=== PATIENT | male | born 1930 | race Caucasian/White ===

== ENCOUNTER 2016-09-03 10:58 | Observation (INO) ==
--- NOTE | 2016-09-03 11:40 | Emergency Department Note ---
GI Bleed HPI - General Chief complaint: Rectal Bleed Stated complaint: Blood in the stool Time Seen by Provider: 09/03/16 11:23 Source: patient Mode of arrival: ambulatory Limitations: no limitations - History of Present Illness HPI Narrative: Patient came in this morning mainly because of a bloody stool. Also tells me for the last couple of weeks he's been having episodes where he gets angry at his . He states this is not like him. 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 He did have a hand injury in the past and needed surgery on his left hand but otherwise has had no major medical conditions and denies taking any medications. He is a little bit hard of hearing, uses hearing aids but then had a bloody stool this morning and that prompted the visit. It turns out he has an irregular heartbeat and is also very hypertensive at.no history of any headache. The he denies chest pain, denies shortness of breath. - Related Data Home Medications Medication Instructions Recorded Confirmed No Known Home Meds [No Known Home 09/03/16 09/03/16 Meds] Allergies Allergy/AdvReac Type Severity Reaction Status Date / Time No Known Drug Allergies Allergy Unverified 09/03/16 11:10 Review of Systems All systems ED: reviewed and negative except as stated. Past Medical History - Past Medical History Source: nursing notes reviewed Surgical history ED: Reports: orthopedic, other Family history: Reports: no significant family history - Social History smoking status: Former smoker Alcohol use: Reports: Rarely Drug use: Reports: none Physical Exam - General Limitations: no limitations General appearance: alert, in no apparent distress - Head Head exam: atraumatic, normocephalic, normal inspection - Eye Eye exam: Present: normal appearance, PERRL, EOMI. Absent: conjunctival injection - ENT ENT exam: normal exam, normal oropharynx, mucous membranes moist, other ( hearing aids bilaterally) - Chest Chest inspection: Present: normal inspection - Respiratory Respiratory exam: Present: normal lung sounds bilaterally - Cardiovascular Cardiovascular exam: Present: irregular rhythm - Abdominal Exam Abdominal exam: Present: soft. Absent: distention - Rectal Exam Rectal exam: Present: normal inspection, normal rectal tone, bloody stool, prostate enlargement, other (Maroon-colored stool). Absent: hemorrhoids - exam: Present: normal inspection. Absent: testicular tenderness - Extremities Exam Extremities exam: Present: normal inspection, full ROM, other (He has tremors of his right hand and forearm). Absent: tenderness - Back Exam Back exam: Present: normal inspection - Neurological Exam Neurological exam: Present: alert, oriented X3, CN II-XII intact. Absent: motor sensory deficit - Psychiatric Psychiatric exam: Present: normal affect - Skin Skin exam: Present: warm, dry, intact Course - Reevaluation(s) Reevaluation #1: Patient was given IV enalapril, also choroid and his blood pressure did come down to 160 range. A. fib is likely chronic but with his rectal bleeding this may need evaluation as he is certainly a candidate for either Coumadin or a NOAC. We cannot give him aspirin at this point because of the rectal bleeding. His hematocrit is stable i.e. normal but his bleeding just started this morning. Vital Signs Temperature 97.0 F 09/03/16 11:01 Pulse Rate 80 09/03/16 11:01 Respiratory Rate 18 09/03/16 11:01 Blood Pressure 205/116 09/03/16 11:01 Pulse Oximetry (%) 96 09/03/16 11:01 Temperature 97.0 F 09/03/16 11:01 Pulse Rate 69 09/03/16 13:32 Respiratory Rate 19 09/03/16 13:32 Blood Pressure 158/91 09/03/16 13:32 Pulse Oximetry (%) 97 09/03/16 13:32 GI Bleed - [facility] Narrative Medical decision making narrative: final diagnoses is #1 new-onset a atrial fibrillation 2)rectal bleeding #3 hypertension untreated - Lab Data Result diagrams: 09/03/16 11:45 09/03/16 11:45 Lab Results 09/03/16 09/03/16 09/03/16 Range/Units 11:45 11:45 11:45 WBC 6.7 (4.5-11.0) K/mcL RBC 4.78 (4.50-5.90) M/mcL Hgb 15.5 (13.5-16.5) g/dL Hct 46.8 (41.0-55.0) % MCV 97.8 (80.0-100.0) fL MCH 32.4 (26.0-34.0) pg MCHC 33.2 (31.0-36.0) g/dL RDW 13.5 (11.5-14.5) % Plt Count 231 (140-440) K/mcL MPV 7.9 (7.4-10.4) fL Gran % 59.4 (38.0-78.0) % Lymph % (Auto) 31.8 (15.5-49.0) % Daniels % (Auto) 5.8 (1.0-12.0) % Eos % (Auto) 2.6 (0.0-7.0) % Baso % (Auto) 0.4 (0.0-2.0) % Gran # 4.0 (1.8-8.0) K/mcL Lymph # (Auto) 2.1 (1.5-4.8) K/mcL Daniels # (Auto) 0.4 (0.1-0.9) K/mcL Eos # (Auto) 0.2 (0.0-0.7) K/mcL Baso # (Auto) 0 (0.0-0.3) K/mcL PT INR Sodium 141 (133-145) mmol/L Potassium 4.3 (3.3-5.1) mmol/L Chloride 100 (96-108) mmol/L Carbon Dioxide 25 (22-30) mmol/L Anion Gap 16.0 (8-16) BUN 14 (8-23) mg/dl Creatinine 0.9 (0.7-1.2) mg/dl GFR Calculation 77 Glucose 104 (70-105) mg/dL Calcium 9.6 (8.6-10.4) mg/dl Total Bilirubin 1.4 H (0.0-1.0) mg/dL AST 23 (0-37) U/l ALT 13 (0-40) U/l Alkaline Phosphatase 88 (39-117) U/L Troponin T < 0.01 (0-0.03) ng/ml NT-Pro-B Natriuret Pep 1430.0 H (0-450) pg/ml Total Protein 7.6 (5.9-8.4) gm/dL Albumin 4.4 (3.2-5.2) gm/dL Globulin 3.2 (2.2-3.7) gm/dL Albumin/Globulin Ratio 1.4 (1.0-2.3) 09/03/16 09/03/16 09/03/16 Range/Units 11:45 11:45 12:41 WBC (4.5-11.0) K/mcL RBC (4.50-5.90) M/mcL Hgb (13.5-16.5) g/dL Hct (41.0-55.0) % MCV (80.0-100.0) fL MCH (26.0-34.0) pg MCHC (31.0-36.0) g/dL RDW (11.5-14.5) % Plt Count (140-440) K/mcL MPV (7.4-10.4) fL Gran % (38.0-78.0) % Lymph % (Auto) (15.5-49.0) % Daniels % (Auto) (1.0-12.0) % Eos % (Auto) (0.0-7.0) % Baso % (Auto) (0.0-2.0) % Gran # (1.8-8.0) K/mcL Lymph # (Auto) (1.5-4.8) K/mcL Daniels # (Auto) (0.1-0.9) K/mcL Eos # (Auto) (0.0-0.7) K/mcL Baso # (Auto) (0.0-0.3) K/mcL PT TNP 13.4 INR TNP 1.0 Sodium (133-145) mmol/L Potassium (3.3-5.1) mmol/L Chloride (96-108) mmol/L Carbon Dioxide (22-30) mmol/L Anion Gap (8-16) BUN (8-23) mg/dl Creatinine (0.7-1.2) mg/dl GFR Calculation Glucose (70-105) mg/dL Calcium (8.6-10.4) mg/dl Total Bilirubin (0.0-1.0) mg/dL AST (0-37) U/l ALT (0-40) U/l Alkaline Phosphatase (39-117) U/L Troponin T (0-0.03) ng/ml NT-Pro-B Natriuret Pep Cancelled (0-450) pg/ml Total Protein (5.9-8.4) gm/dL Albumin (3.2-5.2) gm/dL Globulin (2.2-3.7) gm/dL Albumin/Globulin Ratio (1.0-2.3)
[2016-09-03] MEDS ORDERED: CARVEDILOL 6.25 MG TABLET PO ONE (11:44)
[2016-09-03] MEDS ORDERED: ENALAPRILAT 1.25 MG/ML VIAL IV ONE (11:44)
[2016-09-03] MEDS ORDERED: LACTATED RINGERS 1,000 ML IV SCH (11:45)
[2016-09-03] MEDS ORDERED: CARVEDILOL 12.5 MG TABLET ONE (11:56)
[2016-09-03 12:10] LABS: Basophils # (Auto) 0 K/mcL (0.0-0.3); Basophils % (Auto) 0.4 % (0.0-2.0); Eosinophils # (Auto) 0.2 K/mcL (0.0-0.7); Eosinophils % (Auto) 2.6 % (0.0-7.0); Granulocytes % (Auto) 59.4 % (38.0-78.0); Lymphocytes # (Auto) 2.1 K/mcL (1.5-4.8); Lymphocytes % (Auto) 31.8 % (15.5-49.0); Mean Cell Volume 97.8 fL (80.0-100.0); Mean Corpuscular HGB Conc 33.2 g/dL (31.0-36.0); Mean Corpuscular Hemoglobin 32.4 pg (26.0-34.0); Monocytes # (Auto) 0.4 K/mcL (0.1-0.9); Monocytes % (Auto) 5.8 % (1.0-12.0); Platelet Count 231 K/mcL (140-440); RBC 4.78 M/mcL (4.50-5.90); Red Cell Distribution Width 13.5 % (11.5-14.5)
--- NOTE | 2016-09-03 12:13 | XRay Report ---
CLINICAL INFORMATION: Chest pain COMPARISON: None. FINDINGS: The heart is borderline enlarged. Mediastinum is unremarkable. Pulmonary vessels are slightly distended, but no definite edema. Mild underlying COPD changes noted. No definite infiltrates or effusions. Degenerative changes seen in thoracic spine IMPRESSION: COPD and borderline CHF Interpreted and Authenticated by: Bryson De La Torre 09/03/16
[2016-09-03 12:34] LABS: ALT/SGPT 13 U/l (0-40); Albumin 4.4 gm/dL (3.2-5.2); Albumin/Globulin Ratio 1.4 (1.0-2.3); Alkaline Phosphatase 88 U/L (39-117); Blood Urea Nitrogen 14 mg/dl (8-23)
[2016-09-03 14:13] LABS: Appearance,Urine CLOUDY; Bacteria,Urine 0 /hpf (0); Bilirubin,Urine NEG (NEG); Color,Urine YELLOW; Glucose,Urine (UA) NEGATIVE (NEG); Leukocyte Esterase,Urine NEG /uL (NEG); Mucus,Urine FEW /hpf (0); Nitrate,Urine NEG (NEG); Protein,Urine 30 mg/dL (NEG); Specific Gravity,Urine 1.016 (1.000-1.035); Urine Amorphous Crystals FEW /hpf (0); Urine Blood NEG mg/dL (<0.03); Urine Hyaline Cast 1 /lpf (0-2); Urine RBC 6 /hpf (0-1); Urine Squamous Epithelial Cell 0 /hpf (0-4); Urine WBC 8 /hpf (0-4); Urobilinogen,Urine NEG (NEG)
[2016-09-03] MEDS ORDERED: IOPAMIDOL 100 ML BOTTLE IV ONE (15:16)
--- NOTE | 2016-09-03 15:17 | Internal Med History&Physical ---
Medical - H&P: [facility] Patient information: Note initiated : 09/03/16 at 3:15 pm Patient: Lenny Madden 86 y/o M admitted on for Blood In Stool. History of present illness: Mr. Madden is a 86 year old M He generally avoids doctors, and his says has not seen a primary care doctor in about 20 years. He has intermittent rectal bleeding, which she describes as bright red. He believes he has hemorrhoids, so he has been treating this intermittently with Preparation H. His apparently saw how much blood was in the toilet today, and insisted he come in for evaluation. He does note that he has chronic constipation, and often has to strain. He does take eclj-koz-zptrdwm stool softeners to help with this. Sometimes he has quite a bit of pain after straining to have a bowel movement. He also notes lower abdominal discomfort, which she blames on constipation. Otherwise, he denies dizziness or fainting, or shortness of breath or chest pain. ER evaluation did show stool mixed with blood. The ER physician said he did not see hemorrhoids, but the patient is quite sure that he has 1. He is not anemic. ER evaluation also showed severe hypertension, with blood pressures greater than 200/118. The patient's also reported that he had some personality changes lately, and has been more irritable than usual. The patient says he has had some numbness of his left lower leg for the last couple of weeks, that has not wanted to go away. He otherwise denies any focal weakness or facial droop or slurred speech. EKG did show atrial fibrillation, with a controlled rate. The patient is unaware of any history of this. He denies any recent chest pain or palpitations or shortness of breath. EKG is also abnormal, and suggestive of possible previous ME. The patient does note that he normally walks between 3 and 6 miles a day, but the last few days has not been able to tolerate that much exercise. He does note that his left leg has been a little swollen at times lately. Troponin in the emergency room was negative. Past medical history: Patient reports she is an alcoholic, and was drinking about a pint of scotch per week up until about 1 year ago, when he quit. He does not attend . He believes he has a history of rheumatic heart disease. He describes an ulcer in the distant past which sounds like was treated for H. pylori. He is hard of hearing, and uses bilateral hearing aids. He is status post cataract surgery. He was told his blood pressure was severely elevated then, but did not seek follow-up. 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 He has noticed a tremor of his right hand for the last couple of years, at rest. Next Medications: He does not take any prescription medications. He has been using dmea-rar-orrzyaz Preparation H cream, which it sounds like he just tries to squirt up inside the anal canal. Uses it fairly often. An deyb-xyh-dasdjxr stool softener Multivitamin daily Vitamin D daily Flax oil daily Eye vitamins daily Calcium daily Vitamin C daily He uses Aleve rarely for aches and pains. Allergies: He denies any known drug allergies Family history: He believes both of his parents with tuberculosis. One brother had probable colon cancer with a colostomy, and with a heart attack. One sister of unknown causes. I believe he has another sister who is alive and well. He generally walks between 3 and 6 miles per day. Social history: Patient is and lives with his . He previously drank up to 1 pint of scotch per week, but quit about 1 year ago. He smoked 2- 3 packs of cigarettes per day from the age of 17 until about age 50, when he quit. He does not use drugs. 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 Medical - H&P: Meds Home Medications Medication Instructions Recorded Confirmed Type No Known Home Meds [No Known Home 09/03/16 09/03/16 History Meds] Allergies Allergy/AdvReac Type Severity Reaction Status Date / Time No Known Drug Allergies Allergy Unverified 09/03/16 11:10 Medical - H&P: Exam - Constitutional Vitals: Temp Pulse Resp BP Pulse Ox 97.0 F 63 22 210/120 97 09/03/16 11:01 09/03/16 14:50 09/03/16 14:50 09/03/16 14:50 09/03/16 14:50 On exam, he is a well-developed well-nourished elderly man in no acute distress. He is hard of hearing, but is quite talkative and laughs a lot. Head: Normocephalic, atraumatic. Eyes: Pupils are fairly pinpoint. I could not see his eyegrounds well. He does appear to have IOLs bilaterally. Otherwise, PERRLA, EOMI, anicteric. Ears: Canals have bilateral moderate cerumen. He does have bilateral hearing aids as well. Pharynx: Is clear. He has a full upper plate. Teeth in the lower jaw are in good condition. Neck: Is supple, without obvious lymphadenopathy, JVD, thyromegaly, bruits. Cardiac exam: Irregularly irregular rhythm, with controlled rate. No murmurs, rubs, gallops are noted. Lungs: He does have a few crackles at the bases, but the remainder of the lung browning are clear. No rhonchi or wheezes are noted. There is no accessory muscle use. Abdomen: Is soft, without guarding or rebound. Bowel sounds are active. There is some mild vague tenderness noted in both lower quadrants. No masses are obvious. Rectal exam was done in the emergency room, and reported showing normal tone with bloody stool and enlarged prostate. Extremities: Show no cyanosis, clubbing, edema. He is missing his index finger on the left hand. Neurologic: The patient is alert and oriented 3. Mood and affect appear normal. He did become tearful at one point, when describing how irritable he has been with his recently. Cranial nerves II through XII are grossly intact. Motor strength is 5 out of 5 throughout. Sensory: Is intact to soft touch throughout. Cerebellar: Finger to finger and finger to nose exam are intact. There is no pronator drift noted. He does have a resting tremor of his right hand. Deep tendon reflexes: Are 2+ at the biceps and patella. He withdraws bilaterally to plantar stimulation. Gait is not tested. Medical - H&P: Reslt - Labs CBC & Chem 7: 09/03/16 16:57 09/03/16 11:45 Labs: Short CBC 09/03/16 Range/Units 11:45 WBC 6.7 (4.5-11.0) K/mcL Hgb 15.5 (13.5-16.5) g/dL Hct 46.8 (41.0-55.0) % Plt Count 231 (140-440) K/mcL BMP 09/03/16 11:45 Sodium 141 Potassium 4.3 Chloride 100 Carbon Dioxide 25 BUN 14 Creatinine 0.9 Glucose 104 Calcium 9.6 Cardiac Enzymes 09/03/16 Range/Units 11:45 Troponin T < 0.01 (0-0.03) ng/ml Liver Function 09/03/16 Range/Units 11:45 Total Bilirubin 1.4 H (0.0-1.0) mg/dL AST 23 (0-37) U/l ALT 13 (0-40) U/l Alkaline Phosphatase 88 (39-117) U/L Albumin 4.4 (3.2-5.2) gm/dL Urine 09/03/16 Range/Units 13:17 Urine Color Yellow Urine Appearance Cloudy Urine pH 7.0 (5.0-9.0) Ur Specific Baltic 1.016 (1.000-1.035) Urine Protein 30 A (NEG) mg/dL Urine Glucose (UA) Negative (NEG) mg/dL Urinalysis: Shows 30 mg of protein, 5 ketones, 6 red blood cells, 8 white blood cells, a few amorphous crystals. Culture pending Chest x-ray: Borderline cardiomegaly. Borderline pulmonary vessel dilation. Mild underlying COPD changes. Thoracic spine DJD. CBC differential is normal. Pro time is normal. EKG: Shows atrial fibrillation with a rate of about 70. Occasional PVCs. Left axis deviation. Slow R-wave progression consistent with possible previous ME. No acute appearing ischemic changes. No old EKG to compare. Medical - H&P: A/P (1) Hypertensive urgency Current visit: Yes Status: Acute (2) Atrial fibrillation Current visit: Yes Status: Acute (3) Abnormal EKG Current visit: Yes Status: Acute (4) Rectal bleeding Current visit: Yes Status: Acute - Narrative A/P Narrative: #1. Hypertension. This patient presents with quite severe hypertension. Apparently elevated blood pressure has been documented in the past, but the patient has never sought treatment for this.. His has reported recent personality changes, and I think it would be prudent to check a head CT to rule out recent stroke. Finding evidence of a recent stroke would change our blood pressure target for today. -Admit to observation, and continue to monitor. -Check BNP. Consider echocardiogram, to look for chronic LVH type changes. EKG is also abnormal, so I would wonder about previous ME. 2. Cardiac. -Patient presents with atrial fibrillation, with controlled rate. Chronicity of this is unknown. Chads 2 vascular score is 3 points, which gives him a stroke risk of 3.2% per year. Patient is at increased risk for stroke, and should consider a AC therapy. However we may need to clarify the source of his rectal bleeding first. -Admit to telemetry. -Work on blood pressure control. Consider RIKKI inhibitor with or without diuretic, initially. He may not tolerate a beta-kike. 3. GI. Rectal bleeding. -Check serial hemoglobin and hematocrit, to monitor for stability. We do not have old records to compare. I would be most suspicious of hemorrhoidal bleeding and/or rectal fissure. -Add Anusol suppositories, as needed. 4. CODE STATUS: Patient prefers to be a full code for now, but would not want long-term life support. 5. DVT prophylaxis: SCDs for now. I will hold off on heparin until I see his head CT results. 6. Pulmonary. -Evidence of COPD on his chest x-ray. Any pulmonary symptoms. 7. Neurologic. -Patient's reported increased irritability and personality changes. Head CT. Serial neuro checks. -If head CT is okay, add aspirin for now. So far today, this visit has taken approximately 75 minutes, to review his case with the ER MD, review test results, interview and examine him, and also interview his , and write orders. Head CT and echocardiogram are still pending.
[2016-09-03] MEDS ORDERED: ACETAMINOPHEN 325 MG TABLET PO PRN (16:05)
[2016-09-03] MEDS ORDERED: DOCUSATE SODIUM 100 MG CAPSULE PO PRN (16:05)
[2016-09-03] MEDS ORDERED: MAGNESIUM HYDROXIDE 30 ML ORAL.SUSP PO PRN (16:05)
[2016-09-03] MEDS ORDERED: ONDANSETRON 4 MG/2 ML VIAL IV PRN (16:05)
[2016-09-03] MEDS: LACTATED RINGERS 1,000 ML IV SCH (17:11)
[2016-09-03] MEDS ORDERED: KETAMINE 10 MG/ML ML IV PRN (17:39)
[2016-09-03] MEDS ORDERED: MIDAZOLAM 2 MG/2 ML VIAL IV SCH (17:45)
[2016-09-03] MEDS ORDERED: PROPOFOL 200 MG/20 ML VIAL IV SCH (17:45)
[2016-09-03] MEDS ORDERED: METOPROLOL TARTRATE 25 MG TABLET PO PRN (17:50)
[2016-09-03] MEDS ORDERED: HYDROCORTISONE ACETATE 25 MG SUPP.RECT PR PRN (17:51)
[2016-09-03] MEDS ORDERED: FUROSEMIDE 20 MG/2 ML VIAL IV ONE ×2 (19:35→19:51)
[2016-09-03] MEDS: HEPARIN 5,000 UNIT/ML VIAL SQ SCH (21:28)
[2016-09-04 05:31] LABS: Basophils # (Auto) 0 K/mcL (0.0-0.3); Basophils % (Auto) 0.5 % (0.0-2.0); Eosinophils # (Auto) 0.2 K/mcL (0.0-0.7); Eosinophils % (Auto) 3.3 % (0.0-7.0); Granulocytes % (Auto) 53.7 % (38.0-78.0); Lymphocytes # (Auto) 2.4 K/mcL (1.5-4.8); Lymphocytes % (Auto) 34.7 % (15.5-49.0); Mean Cell Volume 97.9 fL (80.0-100.0); Mean Corpuscular HGB Conc 33.1 g/dL (31.0-36.0); Mean Corpuscular Hemoglobin 32.4 pg (26.0-34.0); Monocytes # (Auto) 0.5 K/mcL (0.1-0.9); Monocytes % (Auto) 7.8 % (1.0-12.0); Platelet Count 213 K/mcL (140-440); RBC 4.69 M/mcL (4.50-5.90); Red Cell Distribution Width 13.5 % (11.5-14.5)
[2016-09-04 06:45] LABS: ALT/SGPT 11 U/l (0-40); Albumin 3.9 gm/dL (3.2-5.2); Albumin/Globulin Ratio 1.3 (1.0-2.3); Alkaline Phosphatase 77 U/L (39-117); Bilirubin,Direct < 0.2 mg/dL (0.0-0.3); Blood Urea Nitrogen 13 mg/dl (8-23); Gamma Glutamyl Transpeptidase 32 U/L (8-61); Magnesium 1.9 mg/dL (1.6-2.5); Uric Acid 5.7 mg/dL (2.5-8.0)
[2016-09-04] MEDS ORDERED: LISINOPRIL/HCTZ 10/12.5MG TABLET PO SCH (09:00)
[2016-09-04] MEDS ORDERED: LISINOPRIL 10 MG TABLET PO SCH (09:00)
[2016-09-04] MEDS ORDERED: HYDROCHLOROTHIAZIDE 12.5 MG CAPSULE PO SCH (09:00)
--- NOTE | 2016-09-04 09:18 | Cat Scan Report ---
CLINICAL INFORMATION: Hypertension and personality change: Atrial fibrillation COMPARISON: None. TECHNIQUE: 80 cc of Isovue-300 were injected intravenously , and using SmartPrep to maximize cerebral arterial opacification, 0.625 mm helical slices were obtained from the skull base through the cerebral vertex. Following reconstruction , sagittal, coronal and axial reformatted images were processed and reviewed at multiple windows and levels. 3D volume rendered and MIP images were also obtained at an independent workstation. FINDINGS: The intracranial internal carotid, vertebral basilar, anterior, middle and posterior cerebral arteries and their branches are normal in contour and caliber without abnormality. The superficial and deep cerebral veins and venous sinuses are widely patent. The parenchyma shows mild underlying atrophy and chronic ischemic changes in the cerebral white matter. No evidence of hypertensive hemorrhage or focal infarct IMPRESSION: Normal Interpreted and Authenticated by: Bryson De La Torre 09/04/16
[2016-09-04] MEDS ORDERED: WARFARIN 5 MG TABLET PO SCH (14:00)
--- NOTE | 2016-09-04 14:38 | Discharge Summary ---
Medical - DS: Prov Patient information: Note initiated : 09/04/16 at 2:35 pm Patient: Lenny Madden 86 y/o M admitted on 09/03/16 for Blood In Stool/ Hypertensive Urgency, AFib. Date of admission: 09/03/16 15:15 Discharge date: 09/04/16 Admitting clinician: Allison Kwan Attending physician on discharge: Allison Kwan Medical - DS: Meds - Discharge Medications Prescriptions: Warfarin [Coumadin] 5 mg PO QHS #30 tablet Hydrocortisone Acetate [Anusol Hc] 25 mg DE BIDP PRN #14 PRN Reason: Hemorrhoids Lisinopril/Hctz 10/12.5MG [Zestoretic 10/12.5MG] 1 tab PO DAILY #30 tab Active and Home Medications: Home Medications Fish Oil 1,000 mg PO DAILY 09/03/16 [History Confirmed 09/03/16 Last Taken 09/03 09:00] Multivitamin [One Daily Essential] 1 each PO DAILY 09/03/16 [History Confirmed 09/03/16 Last Taken 09/03/16 09:00] Vit A,C & E/Lutein/Minerals [Ocuvite] 1 tab PO DAILY 09/03/16 [History Confirmed 09/03/16 Last Taken 09/03/16 09:00] Vitamin D3 [Vitamin D3] 1 cap PO DAILY 09/03/16 [History Confirmed 09/03/16 Last Taken 09/03/16 09:00] Medical - DS: Hosp Hospital course: Mr. Madden is a 86 year old M September 03, 2016: History of present illness: Mr. Madden is a 86 year old M He generally avoids doctors, and his says has not seen a primary care doctor in about 20 years. He has intermittent rectal bleeding, which she describes as bright red. He believes he has hemorrhoids, so he has been treating this intermittently with Preparation H. His apparently saw how much blood was in the toilet today, and insisted he come in for evaluation. He does note that he has chronic constipation, and often has to strain. He does take [id number] stool softeners to help with this. Sometimes he has quite a bit of pain after straining to have a bowel movement. He also notes lower abdominal discomfort, which she blames on constipation. Otherwise, he denies dizziness or fainting, or shortness of breath or chest pain. ER evaluation did show stool mixed with blood. The ER physician said he did not see hemorrhoids, but the patient is quite sure that he has 1. He is not anemic. ER evaluation also showed severe hypertension, with blood pressures greater than 200/118. The patient's also reported that he had some personality changes lately, and has been more irritable than usual. The patient says he has had some numbness of his left lower leg for the last couple of weeks, that has not wanted to go away. He otherwise denies any focal weakness or facial droop or slurred speech. EKG did show atrial fibrillation, with a controlled rate. The patient is unaware of any history of this. He denies any recent chest pain or palpitations or shortness of breath. EKG is also abnormal, and suggestive of possible previous NH. The patient does note that he normally walks between 3 and 6 miles a day, but the last few days has not been able to tolerate that much exercise. He does note that his left leg has been a little swollen at times lately. Troponin in the emergency room was negative. Past medical history: Patient reports she is an alcoholic, and was drinking about a pint of scotch per week up until about 1 year ago, when he quit. He does not attend AA. He believes he has a history of rheumatic heart disease. He describes an ulcer in the distant past which sounds like was treated for H. pylori. He is hard of hearing, and uses bilateral hearing aids. He is status post cataract surgery. He was told his blood pressure was severely elevated then, but did not seek follow-up. 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 He has noticed a tremor of his right hand for the last couple of years, at rest. September 04, 2016: Hospital course: -The patient diuresed over 1500 mL overnight, and states he feels so much better this morning. He notes his leg swelling is definitely gone. 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 -Blood pressures are much better controlled this morning. -He has had no further rectal bleeding. Hemoglobin and hematocrit are stable this morning. -CT angiogram of the brain did not show any obvious strokes or arterial occlusions. Echocardiogram was done, and I do not have a formal report, but Dr. Sylvester called last night to say that ejection fraction was around 50%, and there was mild LVH, but otherwise not much in the way of significant findings. On exam, he is a well-developed man lying in bed. He is in good spirits today. Neck is supple without obvious JVD. Cardiac exam shows an irregularly irregular rhythm with controlled rate. Lungs show a few crackles at the bases, otherwise clear. Abdomen is soft and nontender. Extremities: Show no significant edema. Neurologic exam: Is grossly nonfocal. Assessment and plan: #1. Hypertension. This patient presented with hypertensive urgency. He received Coreg and Enalapril in the emergency room, and blood pressure settle down nicely. I believe he did receive 1 dose of IV Lopressor last night as well. He has been a bit bradycardic this morning, but blood pressures are generally fairly well controlled, ranging from 149-154/79-86. Due to his stroke risk, I have chosen to start him on lisinopril plus HCTZ. -He will need to follow-up with a new primary care physician as soon as possible , to recheck his labs and his blood pressure. I believe we have arranged for him to meet with Dr. Bryson Dawson this evening, to establish care. -The formal echocardiogram report should be obtained. 2. Cardiac. -Patient presents with atrial fibrillation, with controlled rate. Chronicity of this is unknown. Chads 2 vascular score is 3 points, which gives him a stroke risk of 3.2% per year. Patient is at increased risk for stroke, and should consider a AC therapy. -I have elected to start him on anticoagulation. We check the cost for Eliquis and Xarelto, but even with his insurance, these would cost him over $300 a month. He has decided to go with Coumadin. He will receive 10 mg of Coumadin this afternoon. He will be sent home with a prescription for 5 mg, to take one each evening. I believe Dr. Dawson will be able to have his INR checked on Friday, to adjust his dose if needed, but alternatively, he could come to the [facility], and that result can be called to the hospitalist, and we can manage it over the weekend. -He will need lots of education about warfarin and medical care in general, since he has avoided doctors for the last 20+ years. -Rate is well controlled. It appears he would not tolerate a beta-kike, as he was quite bradycardic on telemetry earlier today. 3. GI. Rectal bleeding. -He has not had any further rectal bleeding today. We believe the source is hemorrhoidal, but he should probably have GI follow-up to investigate further, at some point. Hemoglobin and hematocrit were stable overnight. -Anusol suppositories, twice daily as needed, were prescribed. 4. CODE STATUS: Patient prefers to be a full code for now, but would not want long-term life support. 5. DVT prophylaxis: Coumadin is being started today. 6. Pulmonary. -Evidence of COPD on his chest x-ray. He denies any pulmonary symptoms. 7. Neurologic. -Patient's reported increased irritability and personality changes. Head CT-angiogram was negative.. Coumadin is being started, due to increased stroke risk. -The patient and his are educated about Coumadin today, and he is strongly encouraged to avoid activities that might induce trauma, such as climbing up ladders and cutting down trees, which apparently are things he would generally do. He is advised that he can continue to walk 3-6 miles a day, as is his habit , but should avoid trauma. Disposition: Patient will be discharged home today to the care of his . I believe we have arranged for him to meet Dr. Bryson Dawson this afternoon, to establish care, so that he can help monitor his new blood pressure and Coumadin medications. This visit is taken approximately 40 minutes so far today, to meet with the patient and his , at least twice, to review test results, to examine him and the plan of care with staff, and then write orders. Discharge diagnosis: New onset atrial fibrillation. Hypertensive urgency. Volume overload. Re Secondary discharge diagnosis: Rectal bleeding. - Time Spent with Patient Total time spent providing and/or coordinating discharge services: Greater than 30 minutes Medical - DS: Exam - Constitutional Vitals: Vital Signs Temp Pulse Resp BP Pulse Ox 09/04/16 08:00 98.0 F 18 154/86 97 09/04/16 07:02 94 09/04/16 04:00 98.5 F 69 18 151/86 94 09/04/16 00:00 98.4 F 68 18 149/79 92 09/03/16 20:00 98.9 F 68 20 194/90 94 09/03/16 16:30 207/121 09/03/16 15:40 98.2 F 58 L 18 198/97 96 Intake and Output 09/04/16 09/04/16 09/04/16 05:59 13:59 21:59 Intake Total 360 / 360 Output Total 1575 / 1575 Balance -1575 / -1575 360 / 360 Intake: Oral 360 / 360 Output: Void Amount 1575 / 1575 Other: Meal Breakfast Percent of Meal Consumed 100% Medical - DS: Data Labs on day of discharge: Labs from last 24 hours 09/04/16 09/04/16 09/04/16 03:38 03:38 03:38 WBC 7.0 RBC 4.69 Hgb 15.2 TNP Hct 45.9 TNP MCV 97.9 MCH 32.4 MCHC 33.1 RDW 13.5 Plt Count 213 MPV 7.8 Gran % 53.7 Lymph % (Auto) 34.7 [place] % (Auto) 7.8 Eos % (Auto) 3.3 Baso % (Auto) 0.5 Gran # 3.8 Lymph # (Auto) 2.4 [place] # (Auto) 0.5 Eos # (Auto) 0.2 Baso # (Auto) 0 Sodium 142 Potassium 4.2 Chloride 100 Carbon Dioxide 27 Anion Gap 15.0 BUN 13 Creatinine 0.8 GFR Calculation 81 Glucose 74 Uric Acid 5.7 Calcium 9.2 Phosphorus 3.1 Magnesium 1.9 Total Bilirubin 1.6 H Direct Bilirubin < 0.2 GGT 32 AST 20 ALT 11 Alkaline Phosphatase 77 Lactate Dehydrogenase 220 NT-Pro-B Natriuret Pep Total Protein 6.8 Albumin 3.9 Globulin 2.9 Albumin/Globulin Ratio 1.3 Triglycerides 77 09/03/16 09/03/16 09/03/16 21:55 16:57 16:57 WBC RBC Hgb 15.2 15.5 Hct 46.2 46.4 MCV MCH MCHC RDW Plt Count MPV Gran % Lymph % (Auto) [place] % (Auto) Eos % (Auto) Baso % (Auto) Gran # Lymph # (Auto) [place] # (Auto) Eos # (Auto) Baso # (Auto) Sodium Potassium Chloride Carbon Dioxide Anion Gap BUN Creatinine GFR Calculation Glucose Uric Acid Calcium Phosphorus Magnesium Total Bilirubin Direct Bilirubin GGT AST ALT Alkaline Phosphatase Lactate Dehydrogenase NT-Pro-B Natriuret Pep 1451.0 H Total Protein Albumin Globulin Albumin/Globulin Ratio Triglycerides September 04: Intake and output shows he diuresed about 1500 mL overnight. Urine culture shows no growth to date. CT angiogram of the head: As interpreted as normal. Intracranial internal carotid, vertebrobasilar, anterior middle and posterior cerebral arteries and their branches are normal. Parenchyma shows mild underlying atrophy and chronic ischemic changes. Echocardiogram: Formal report is pending. September 03: Urinalysis: Shows 30 mg of protein, 5 ketones, 6 red blood cells, 8 white blood cells, a few amorphous crystals. Culture pending Chest x-ray: Borderline cardiomegaly. Borderline pulmonary vessel dilation. Mild underlying COPD changes. Thoracic spine DJD. CBC differential is normal. Pro time is normal. Troponin was normal. BNP was elevated. EKG: Shows atrial fibrillation with a rate of about 70. Occasional PVCs. Left axis deviation. Slow R-wave progression consistent with possible previous NH. No acute appearing ischemic changes. No old EKG to compare. Medical - DS: A/P - Patient/Caregiver Discharge Instructions Activity: increase activity as tolerated Diet: Cardiac Additional Instructions: 1. Cardiac arrhythmia: No fibrillation. -This rhythm increases her risk for stroke. Because of this, we are starting you on a blood thinner, warfarin. He will be given 1 dose of this today, prior to leaving. He should then plan on taking 1 dose each evening, until the dose is adjusted by your new physician , Dr. Dawson. He will meet with Dr. Dawson this evening, at 5 PM, to establish care. Please do not miss this appointment. Please avoid activities which may lead to trauma or falls. Please avoid ladders. Please avoid cutting down trees or doing other things were you might end up falling or having something fall on you. Continue to exercise daily, as tolerated. Walking is a great exercise. Call your doctor right away if you see signs of excessive bleeding. #2. Rectal bleeding. Suspect this is due to hemorrhoids. I did prescribe a medication, a rectal suppository, to use as needed, when this flares up. Dr. Dawson may want to refer you to a milieu technician, to consider a colonoscopy, to be sure the bleeding is only from hemorrhoids. #3. Hypertension. Blood pressure was extremely high yesterday. He also showed signs of holding onto too much fluid. You were started today on a new blood pressure medication, that also includes a fluid pill. These take this every morning. Please have Dr. Dawson check lab tests/kidney function, and the next 1-2 weeks. Prescriptions: Warfarin [Coumadin] 5 mg PO QHS #30 tablet Hydrocortisone Acetate [Anusol Hc] 25 mg DE BIDP PRN #14 PRN Reason: Hemorrhoids Lisinopril/Hctz 10/12.5MG [Zestoretic 10/12.5MG] 1 tab PO DAILY #30 tab - Problem Maintenance (1) Hypertensive urgency Status: Acute (2) Atrial fibrillation Status: Acute (3) Abnormal EKG Status: Acute (4) Rectal bleeding Status: Acute - Follow up Plan Follow up with: Bryson Dawson DO [Physician] - 09/04/16 5:00 pm Disposition: Home, Self-Care Prognosis: Good Rehab Potential: Good Overall status at discharge: patient is back to baseline Medical - DS: Qual - VTE Deep Vein Thrombosis/Pulmonary Embolism Present on Admission: No
[2016-09-04] MEDS: HEPARIN 5,000 UNIT/ML VIAL SQ SCH (15:39)
[2016-09-04] MEDS: LACTATED RINGERS 1,000 ML IV SCH (15:40)
== END 2016-09-04 17:00 | disposition home or self-care (01) ==
LOC: ICU 10:58 → ED 10:58 → ICU 15:31
PROVIDERS: ADMIT Internal Medicine; ATTEND Internal Medicine

== ENCOUNTER 2016-09-26 13:18 | Inpatient (IN) ==
[~2016-09-26 13:18] MED LIST: KETAMINE 10 MG/ML ML IV PRN; MIDAZOLAM 2 MG/2 ML VIAL IV SCH; PROPOFOL 200 MG/20 ML VIAL IV SCH
[2016-09-26] MEDS ORDERED: HYDROmorphone 2 MG/ML SYRINGE IV PRN (15:27)
[2016-09-26] MEDS ORDERED: ONDANSETRON 4 MG/2 ML VIAL IV PRN (15:27)
[2016-09-26] MEDS: 0.9 % SODIUM CHLORIDE 1,000 ML IV SCH (16:14)
[2016-09-26 17:06] LABS: Appearance,Urine CLEAR; Bilirubin,Urine NEG (NEG); Color,Urine STRAW; Glucose,Urine (UA) NEGATIVE (NEG); Leukocyte Esterase,Urine NEG /uL (NEG); Nitrate,Urine NEG (NEG); Protein,Urine NEG (NEG); Specific Gravity,Urine 1.004 (1.000-1.035); Urine Blood NEG mg/dL (<0.03); Urobilinogen,Urine NEG (NEG)
[2016-09-26 17:11] LABS: Mean Corpuscular HGB Conc 33.4 g/dL (31.0-36.0); Mean Corpuscular Hemoglobin 32.4 pg (26.0-34.0); Platelet Count 258 K/mcL (140-440); RBC 4.67 M/mcL (4.50-5.90); Red Cell Distribution Width 12.9 % (11.5-14.5)
[2016-09-26 17:33] LABS: ALT/SGPT 14 U/l (0-40); Albumin 4.1 gm/dL (3.2-5.2); Albumin/Globulin Ratio 1.3 (1.0-2.3); Alkaline Phosphatase 78 U/L (39-117); Bilirubin,Direct < 0.2 mg/dL (0.0-0.3); Blood Urea Nitrogen 19 mg/dl (8-23); C-Reactive Protein < 0.3 mg/dl (0.0-0.8); Gamma Glutamyl Transpeptidase 22 U/L (8-61); Magnesium 2.3 mg/dL (1.6-2.5); Uric Acid 7.1 mg/dL (2.5-8.0)
--- NOTE | 2016-09-26 17:35 | General Surg History&Physical ---
History of Present Illness Patient information: Note initiated : 09/26/16 at 5:33 pm Service Date, if different from initiated Date: [] Patient: Lenny Madden a 86 y/o M admitted on 09/26/16 for Colonoscopy. Chief Complaint: [Rectal bleeding] HPI: Mr. Madden is a 86 year old M with history of intermittent rectal bleeding for a few months. He had an episode of paroxysmal atrial fibrillation and was started on Coumadin. His INR progressed about 4 and he had more rectal bleeding. He was referred for colonoscopy. At colonoscopy he was noted to have a large exophytic neoplasm of his sigmoid colon at about 15-20 cm. He has active bleeding at the time and is admitted for colectomy in the morning. Review of Systems - Constitutional no frequent falls, no headache(s), no malaise, no weakness, no weight loss - EENT Nose, mouth and throat: no abnormal hearing (Bilateral hearing aids), no dizziness, no headache(s), no vertigo - Cardiovascular irregular heart rhythm, palpatations, rapid heart rate, no chest pain at rest, no claudication, no dyspnea on exertion, no syncope - Respiratory no cough, no dyspnea on exertion, no wheezing, no chest congestion - Gastrointestinal hematochezia, no abdominal pain, no bloating, no change in bowel habits, no change in stool character, no constipation, no fecal incontinence, no melena, no nausea, no vomiting - Genitourinary change in urinary stream, urinary frequency, urinary urgency, no dysuria - Musculoskeletal abnormal gait, arthralgias, joint swelling, muscle weakness, numbness, stiffness - Integumentary no change in nails, no changing lesions, no new lesions, no pruritus, no rash - Neurological abnormal hearing, no abnormal movements, no abnormal speech, no confusion, no dizziness, no numbness, no syncope, no tremor(s) - Psychiatric no anxiety, no confusion, no depression, no paranoia - Endocrine no cold intolerance, no fatigue, no palpitations - Hematologic/Lymphatic no easy bleeding, no easy bruising, no lymphadenopathy - Allergic/Immunologic no tongue swelling, no throat swelling, no uticaria, no wheezing, no lip swelling Past History Past medical history: Hypertension Chronic atrial fibrillation Hypertensive cardiomyopathy with ejection fraction of 50% Past surgical history: Amputation left second finger Past family history: Not applicable Past social history: Former smoker Occasional alcohol use Medications and Allergies Home Medications Medication Instructions Recorded Confirmed Type Fish Oil 1,000 mg PO DAILY 09/03/16 09/26/16 History Multivitamin [One Daily Essential] 1 each PO DAILY 09/03/16 09/26/16 History Vit A,C & E/Lutein/Minerals 1 tab PO DAILY 09/03/16 09/26/16 History [Ocuvite] Vitamin D3 1 cap PO DAILY 09/03/16 09/26/16 History Acetaminophen [Tylenol] 650 mg PO Q6HP PRN tab 09/04/16 09/26/16 Rx furosemide 20 mg tablet 20 mg PO QDAY #30 tab 09/04/16 09/26/16 Rx lisinopril 10 1 tab PO DAILY #30 tab 09/04/16 09/26/16 Rx mg-hydrochlorothiazide 12.5 mg tablet potassium chloride ER 10 mEq 10 meq PO QDAY #30 tab 09/04/16 09/26/16 Rx tablet,extended release warfarin 1 mg tablet 1 mg PO .COMPLEX #30 tab 09/20/16 09/26/16 Rx warfarin 5 mg tablet 5 mg PO .COMPLEX #30 tab 09/20/16 09/26/16 Rx Allergies Allergy/AdvReac Type Severity Reaction Status Date / Time No Known Drug Allergies Allergy Verified 09/18/16 16:25 Exam Temp Pulse Resp BP Pulse Ox 97.7 F 64 20 156/79 94 09/26/16 16:00 09/26/16 15:45 09/26/16 16:00 09/26/16 16:00 09/26/16 16:00 - General physical appearance well developed, well nourished, no distress - Eyes PERRL, normal ocular movement - ENT normal pinna, normal nares, normal mucosa, no hearing loss, no congestion, decreased hearing (Bilateral hearing aids) - Head Head exam IM: Present: atraumatic, normocephalic - Neck no masses, no bruits, trachea midline, no lymphadectomy, no venous distension - Cardiovascular Cardiovascular exam IM: Present: irregular rhythm, +S1, +S2 - Respiratory normal expansion, normal respiratory effort, clear to percussion, clear to auscultation - Abdomen Abdomen: Present: soft, non tender, bowel sounds Hernia: Present: none - Genitourinary Present: normal penis with no external lesions - Rectum Rectum: Present: normal sphincter tone, no hemorrhoids, no tenderness - Integumentary Present: no rash, no growths, no abnormal pigmentation - Neurologic Present: normal coordination, normal sensation - Musculoskeletal Present: normal gait, normal posture - Psychiatric Present: oriented to time, oriented to person, oriented to place, speech is normal, memory intact Assessment and Plan (1) Malignant neoplasm of sigmoid colon Patient counseled for sigmoid colectomy to be done tomorrow morning Status: Acute (2) Essential hypertension Hold antihypertensives until after surgery Status: Acute (3) Anticoagulated on Coumadin INR will be corrected with fresh frozen plasma if needed Patient will be typed and crossed for 2 units of packed red cells Status: Acute (4) Atrial fibrillation Status: Acute Qualifiers: Atrial fibrillation type: chronic Qualified Code(s): I48.2 - Chronic atrial fibrillation (5) Rectal bleeding Status: Acute
[2016-09-26 17:43] LABS: Eosinophils % (Manual) 2 % (0-7); Lymphocytes % 38 % (15-49); Monocytes % (Manual) 6 % (1-12); Platelet Estimate NORMAL (NORMAL); RBC Morphology NORMAL (NORMAL); Segmented Neutrophils % 54 % (38-78)
--- NOTE | 2016-09-26 18:19 | XRay Report ---
CLINICAL INFORMATION: Preoperative evaluation TECHNIQUE: AP portable chest x-ray COMPARISON: Previous examination dated 09/03/2016 FINDINGS: No acute or focal pulmonary parenchymal infiltrate. No parenchymal mass. There are scattered small nodules consistent with calcified granulomas. Heart size and vascularity are normal. Berna and mediastinum are negative. No pulmonary congestion or congestive heart failure. No pleural fluid. No acute abnormality or interval change IMPRESSION: Negative AP portable chest x-ray Interpreted and Authenticated by: Bryson Fry 09/26/16
[2016-09-26] MEDS ORDERED: metroNIDAZOLE 500 MG/100 ML BAG IV SCH (19:00)
[2016-09-26] MEDS: 0.9 % SODIUM CHLORIDE 250 ML IV SCH (23:15)
[2016-09-26] MEDS: 0.9 % SODIUM CHLORIDE 10 ML SYRINGE IV SCH (23:15)
[2016-09-26] MEDS: FAMOTIDINE/PF 20 MG/2 ML VIAL IV SCH (23:16)
[2016-09-27] MEDS ORDERED: PIPERACILLIN SODIUM/TAZOBACTAM 3.375 GM VIAL IV ONE (04:55)
[2016-09-27] MEDS: 0.9 % SODIUM CHLORIDE 1,000 ML IV SCH ×3 (05:23→14:18)
[2016-09-27] MEDS: 0.9 % SODIUM CHLORIDE 10 ML SYRINGE IV SCH (05:47)
[2016-09-27] MEDS: PIPERACILLIN SODIUM/TAZOBACTAM 3.375 GM in DEXTROSE 5% IN WATER 50 ML IV SCH ×3 (05:48→17:57)
[2016-09-27] MEDS: metroNIDAZOLE 500 MG/100 ML BAG IV SCH ×3 (06:00→19:44)
[2016-09-27] MEDS: FAMOTIDINE/PF 20 MG/2 ML VIAL IV SCH ×2 (08:29→20:40)
[2016-09-27] MEDS ORDERED: PROPOFOL 200 MG/20 ML VIAL IV ONE (09:45)
[2016-09-27] MEDS ORDERED: fentaNYL 250 MCG/5 ML VIAL IV ONE (09:45)
[2016-09-27] MEDS ORDERED: LIDOCAINE HCL/PF 100 MG/5 ML SYRINGE IV ONE (09:45)
[2016-09-27] MEDS ORDERED: GLYCOPYRROLATE 0.2 MG/ML VIAL IV ONE (09:45)
[2016-09-27] MEDS ORDERED: KETAMINE 100 MG/ML ML IV ONE (09:45)
[2016-09-27] MEDS ORDERED: DEXAMETHASONE 10 MG/ML VIAL IV ONE (09:45)
[2016-09-27] MEDS ORDERED: HYDROmorphone 2 MG/ML SYRINGE IV ONE (09:45)
[2016-09-27] MEDS ORDERED: MIDAZOLAM 2 MG/2 ML VIAL IV ONE (09:45)
[2016-09-27] MEDS ORDERED: NEOSTIGMINE 1 MG/ML VIAL IV ONE (09:45)
[2016-09-27] MEDS ORDERED: ROCURONIUM 10 MG/ML ML IV ONE (09:45)
[2016-09-27] MEDS ORDERED: ONDANSETRON 4 MG/2 ML VIAL IV ONE (09:45)
[2016-09-27] MEDS ORDERED: ETOMIDATE 20 MG/10 ML VIAL IV ONE (09:45)
[2016-09-27] MEDS: 0.9 % SODIUM CHLORIDE 250 ML IV SCH (10:18)
[2016-09-27] MEDS ORDERED: PIPERACILLIN SODIUM/TAZOBACTAM 3.375 GM in DEXTROSE 5% IN WATER 50 ML IV ONE (11:38)
[2016-09-27] MEDS ORDERED: metroNIDAZOLE 500 MG/100 ML BAG IV ONE (11:39)
[2016-09-27] MEDS ORDERED: HYDROmorphone 2 MG/ML SYRINGE IV PRN (11:49)
[2016-09-27] MEDS ORDERED: LACTATED RINGERS 250 ML IV PRN (11:49)
[2016-09-27] MEDS ORDERED: fentaNYL 100 MCG/2 ML VIAL IV PRN (11:49)
[2016-09-27] MEDS ORDERED: FLUMAZENIL 0.1 MG/ML ML IV PRN (11:49)
[2016-09-27] MEDS ORDERED: BENZOCAINE/MENTHOL 1 LOZENGE PO PRN (11:49)
[2016-09-27] MEDS ORDERED: IPRATROPIUM/ALBUTEROL 3 ML AMPUL.NEB NEB PRN (11:49)
[2016-09-27] MEDS ORDERED: ePHEDrine 50 MG/ML AMPUL IV PRN (11:49)
[2016-09-27] MEDS ORDERED: METHOCARBAMOL 1,000 MG/10 ML VIAL IV PRN (11:49)
[2016-09-27] MEDS ORDERED: NALOXONE HCL 0.4 MG/ML VIAL IV PRN (11:49)
[2016-09-27] MEDS ORDERED: MEPERIDINE 50 MG/ML SYRINGE IM PRN (11:49)
[2016-09-27] MEDS ORDERED: diphenhydrAMINE 50 MG/ML VIAL IV PRN (11:49)
[2016-09-27] MEDS ORDERED: MEPERIDINE 25 MG/ML SYRINGE IV PRN (11:49)
[2016-09-27] MEDS ORDERED: ONDANSETRON 4 MG/2 ML VIAL IV PRN ×2 (11:49→12:45)
[2016-09-27] MEDS ORDERED: LACTATED RINGERS 1,000 ML IV SCH (12:00)
[2016-09-27] MEDS ORDERED: ACETAMINOPHEN 1,000 MG/100 ML BOTTLE IV SCH (12:00)
--- NOTE | 2016-09-27 12:29 | Brief Operative Note ---
Date of procedure: 09/27/16 Pre-op diagnosis: hemorrhagic neoplasm sigmoid colon Post-op diagnosis: other (neoplasm of sigmoid colon) Procedure: segmental left colectomy Grafts/Implants: No Anesthesia: GETA Findings: hard mass of distal sigmoid colon above peritoneal reflection with extension through the wall clinically Complications: none Surgeon: Erick Cortes Estimated blood loss (cc): 50 Specimens Removed/Pathology: other (sigmoid colon) Condition: stable Disposition: PACU
--- NOTE | 2016-09-27 13:07 | Surgical Pathology Report ---
HISTOLOGY SPECIMEN MICROSCOPIC DIAGNOSIS SPECIMEN A - COLON, ASCENDING, POLYPECTOMY: -- TUBULAR ADENOMA(S), TWO FRAGMENTS. -- NO EVIDENCE OF HIGH-GRADE DYSPLASIA OR MALIGNANCY. SPECIMEN B - COLON, DESCENDING, POLYPECTOMY: -- TUBULAR ADENOMA. -- NO EVIDENCE OF HIGH-GRADE DYSPLASIA OR MALIGNANCY. SPECIMEN C - COLON, SIGMOID, BIOPSY: -- INVASIVE MODERATELY-DIFFERENTIATED ADENOCARCINOMA. (SE:manjit) CLINICAL HISTORY Hematochezia. PROCEDURAL IMPRESSION Sigmoid colon cancer; polyps. GROSS DESCRIPTION Specimen A: Received in formalin labeled ascending colon polyp, are two perez to red-perez tissue fragments 0.4 cm each. Totally submitted - one cassette. Specimen B: Received in formalin labeled descending colon polyp, is a 0.6 cm perez tissue fragment. Totally submitted - one cassette. Specimen C: Received in formalin labeled sigmoid colon, are five red-perez tissue fragments 0.2 to 0.4 cm. Totally submitted - one cassette. (RAD:sln) Electronically Signed by: Chichi Mancini D.O.
[2016-09-27 14:33] LABS: Basophils # (Auto) 0 K/mcL (0.0-0.3); Basophils % (Auto) 0.1 % (0.0-2.0); Eosinophils # (Auto) 0.1 K/mcL (0.0-0.7); Eosinophils % (Auto) 0.7 % (0.0-7.0); Granulocytes % (Auto) 93.5 % (38.0-78.0); Lymphocytes # (Auto) 0.6 K/mcL (1.5-4.8); Lymphocytes % (Auto) 4.6 % (15.5-49.0); Mean Cell Volume 96.9 fL (80.0-100.0); Mean Corpuscular HGB Conc 32.8 g/dL (31.0-36.0); Mean Corpuscular Hemoglobin 31.8 pg (26.0-34.0); Monocytes # (Auto) 0.1 K/mcL (0.1-0.9); Monocytes % (Auto) 1.1 % (1.0-12.0); Platelet Count 214 K/mcL (140-440); RBC 4.51 M/mcL (4.50-5.90); Red Cell Distribution Width 12.9 % (11.5-14.5)
[2016-09-27] MEDS: HYDROmorphone 2 MG/ML SYRINGE IV PRN (14:54)
[2016-09-27] MEDS: ACETAMINOPHEN 1,000 MG/100 ML BOTTLE IV SCH ×2 (17:58→23:44)
[2016-09-28] MEDS: PIPERACILLIN SODIUM/TAZOBACTAM 3.375 GM in DEXTROSE 5% IN WATER 50 ML IV SCH ×5 (00:41→23:59)
[2016-09-28] MEDS: metroNIDAZOLE 500 MG/100 ML BAG IV SCH ×4 (01:28→19:53)
[2016-09-28] MEDS: ACETAMINOPHEN 1,000 MG/100 ML BOTTLE IV SCH (05:25)
[2016-09-28 05:37] LABS: Basophils # (Auto) 0 K/mcL (0.0-0.3); Basophils % (Auto) 0 % (0.0-2.0); Eosinophils # (Auto) 0 K/mcL (0.0-0.7); Eosinophils % (Auto) 0.3 % (0.0-7.0); Granulocytes % (Auto) 87.8 % (38.0-78.0); Lymphocytes # (Auto) 0.7 K/mcL (1.5-4.8); Mean Cell Volume 97.3 fL (80.0-100.0); Mean Corpuscular HGB Conc 33.5 g/dL (31.0-36.0); Mean Corpuscular Hemoglobin 32.6 pg (26.0-34.0); Monocytes # (Auto) 0.7 K/mcL (0.1-0.9); Monocytes % (Auto) 5.9 % (1.0-12.0); Platelet Count 226 K/mcL (140-440)
[2016-09-28] MEDS: 0.9 % SODIUM CHLORIDE 1,000 ML IV SCH ×3 (05:45→22:27)
[2016-09-28 05:58] LABS: ALT/SGPT 10 U/l (0-40); Albumin 3.3 gm/dL (3.2-5.2); Albumin/Globulin Ratio 1.2 (1.0-2.3); Alkaline Phosphatase 58 U/L (39-117); Bilirubin,Direct < 0.2 mg/dL (0.0-0.3); Blood Urea Nitrogen 16 mg/dl (8-23); Gamma Glutamyl Transpeptidase 17 U/L (8-61); Magnesium 1.9 mg/dL (1.6-2.5); Uric Acid 5.4 mg/dL (2.5-8.0)
[2016-09-28] MEDS: FAMOTIDINE/PF 20 MG/2 ML VIAL IV SCH ×2 (09:34→21:01)
[2016-09-28] MEDS: HYDROmorphone 2 MG/ML SYRINGE IV PRN (12:35)
--- NOTE | 2016-09-28 14:30 | General Surgery Progress Note ---
Subjective Patient reports: feels better, pain is less, no flatus, no bowel movement, afebrile Narrative: Note initiated : 09/28/16 at 2:28 pm Service Date, if different from initiated Date: [] Patient: Lenny Madden 86 y/o M admitted on 09/26/16 for Colonoscopy. Chief Complaint: [Patient is doing well. He has minimal pain. He has only needed the IV acetaminophen for pain control. He denies nausea. He has not had chest pain or shortness of breath. DENA drainage is small volume and serosanguineous.] Objective Temp Pulse Resp BP Pulse Ox 98.8 F 68 18 117/70 98 09/28/16 08:17 09/28/16 08:00 09/28/16 08:00 09/28/16 08:17 09/28/16 08:17 - Additional Data Intake & Output - Last 24 hours: Intake & Output 09/26/16 09/27/16 09/28/16 09/29/16 05:59 05:59 05:59 05:59 Intake Total 1300 / 1300 1870 / 1870 250 / 250 Output Total 1126 / 1126 1655 / 1655 Balance 174 / 174 215 / 215 250 / 250 Weight 174 lb 8 oz 172 lb 172 lb - General physical appearance no distress, no pain - Eyes PERRL - ENT no congestion - Neck no venous distension - Respiratory clear to auscultation - Cardiovascular Cardiovascular exam: Present: irregular rhythm, tachycardia (Controlled atrial fibrillation heart rate 88) - Abdomen soft, tender, bowel sounds, distended (Abdomen nondistended with good active bowel sounds incision looks good DENA drainage is serosanguineous) - Integumentary no rash, no growths, no abnormal pigmentation - Neurologic normal coordination, normal sensation - Musculoskeletal normal gait, normal posture - Psychiatric oriented to time, oriented to person, oriented to place, speech is normal, memory intact - Labs 09/28/16 04:18 09/28/16 04:18 Diabetes panel 09/28/16 Range/Units 04:18 Sodium 138 (133-145) mmol/L Potassium 4.0 (3.3-5.1) mmol/L Chloride 102 (96-108) mmol/L Carbon Dioxide 23 (22-30) mmol/L BUN 16 (8-23) mg/dl Creatinine 1.0 (0.7-1.2) mg/dl Glucose 143 H (70-105) mg/dL Calcium 8.0 L (8.6-10.4) mg/dl AST 19 (0-37) U/l ALT 10 (0-40) U/l Alkaline Phosphatase 58 (39-117) U/L Total Protein 6.0 (5.9-8.4) gm/dL Albumin 3.3 (3.2-5.2) gm/dL Triglycerides 37 (<150) mg/dl Calcium panel 09/28/16 Range/Units 04:18 Calcium 8.0 L (8.6-10.4) mg/dl Phosphorus 3.1 (2.7-4.5) mg/dL Albumin 3.3 (3.2-5.2) gm/dL Pituitary panel 09/28/16 Range/Units 04:18 Sodium 138 (133-145) mmol/L Potassium 4.0 (3.3-5.1) mmol/L Chloride 102 (96-108) mmol/L Carbon Dioxide 23 (22-30) mmol/L BUN 16 (8-23) mg/dl Creatinine 1.0 (0.7-1.2) mg/dl Glucose 143 H (70-105) mg/dL Calcium 8.0 L (8.6-10.4) mg/dl Adrenal panel 09/28/16 Range/Units 04:18 Sodium 138 (133-145) mmol/L Potassium 4.0 (3.3-5.1) mmol/L Chloride 102 (96-108) mmol/L Carbon Dioxide 23 (22-30) mmol/L BUN 16 (8-23) mg/dl Creatinine 1.0 (0.7-1.2) mg/dl Glucose 143 H (70-105) mg/dL Calcium 8.0 L (8.6-10.4) mg/dl Total Bilirubin 1.0 (0.0-1.0) mg/dL AST 19 (0-37) U/l ALT 10 (0-40) U/l Alkaline Phosphatase 58 (39-117) U/L Total Protein 6.0 (5.9-8.4) gm/dL Albumin 3.3 (3.2-5.2) gm/dL Assessment and Plan (1) Malignant neoplasm of sigmoid colon Status: Acute Assessment and plan: Stable status post sigmoid segmental resection Current Visit: Yes (2) Essential hypertension Status: Acute Assessment and plan: Blood pressure is controlled Current Visit: Yes (3) Anticoagulated on Coumadin Status: Acute Current Visit: No (4) Atrial fibrillation Status: Acute Assessment and plan: Chronic atrial fibrillation with controlled response without tachycardia Current Visit: No (5) Rectal bleeding Status: Acute Current Visit: No - Time Spent With Patient Total time spent is greater than 50% in coordination of care (as documented) at patient's floor/unit and/or counseling patient:
[2016-09-28] MEDS: 0.9 % SODIUM CHLORIDE 10 ML SYRINGE IV SCH (17:24)
[2016-09-29] MEDS: metroNIDAZOLE 500 MG/100 ML BAG IV SCH ×4 (02:28→18:32)
[2016-09-29] MEDS: PIPERACILLIN SODIUM/TAZOBACTAM 3.375 GM in DEXTROSE 5% IN WATER 50 ML IV SCH ×4 (05:35→23:36)
[2016-09-29 06:10] LABS: Basophils # (Auto) 0 K/mcL (0.0-0.3); Basophils % (Auto) 0.2 % (0.0-2.0); Eosinophils # (Auto) 0 K/mcL (0.0-0.7); Eosinophils % (Auto) 0.2 % (0.0-7.0); Granulocytes % (Auto) 76.6 % (38.0-78.0); Lymphocytes # (Auto) 1.8 K/mcL (1.5-4.8); Mean Cell Volume 97.9 fL (80.0-100.0); Mean Corpuscular HGB Conc 33.6 g/dL (31.0-36.0); Mean Corpuscular Hemoglobin 32.9 pg (26.0-34.0); Monocytes # (Auto) 0.5 K/mcL (0.1-0.9); Platelet Count 199 K/mcL (140-440); RBC 3.89 M/mcL (4.50-5.90); Red Cell Distribution Width 13.2 % (11.5-14.5)
[2016-09-29] MEDS: 0.9 % SODIUM CHLORIDE 1,000 ML IV SCH ×2 (06:18→17:18)
[2016-09-29 06:51] LABS: ALT/SGPT 9 U/l (0-40); Albumin 2.9 gm/dL (3.2-5.2); Albumin/Globulin Ratio 1.1 (1.0-2.3); Alkaline Phosphatase 48 U/L (39-117); Bilirubin,Direct 0.2 mg/dL (0.0-0.3); Blood Urea Nitrogen 14 mg/dl (8-23); Gamma Glutamyl Transpeptidase 15 U/L (8-61); Magnesium 1.9 mg/dL (1.6-2.5); Uric Acid 3.7 mg/dL (2.5-8.0)
[2016-09-29] MEDS: HYDROmorphone 2 MG/ML SYRINGE IV PRN ×2 (09:03→22:14)
[2016-09-29] MEDS: FAMOTIDINE/PF 20 MG/2 ML VIAL IV SCH ×2 (09:10→20:31)
[2016-09-29] MEDS ORDERED: POTASSIUM PHOSPHATE 40 MEQ in DEXTROSE 5% IN WATER 500 ML IV ONE (12:31)
--- NOTE | 2016-09-29 12:58 | General Surgery Progress Note ---
Subjective Patient reports: feels better, pain is less, no flatus, no bowel movement, afebrile (Is complaining) Narrative: Note initiated : 09/29/16 at 12:56 pm Service Date, if different from initiated Date: [] Patient: Lenny Madden 86 y/o M admitted on 09/26/16 for Colonoscopy. Chief Complaint: [Patient is doing well. He is bright and alert. His pain is well controlled. He has not had nausea. His urine is dark and has sediment which suggests hematuria. Guaiac is positive for blood. He has not had flatus or bowel movement. He denies chest pain shortness of breath.] Objective Temp Pulse Resp BP Pulse Ox 98.1 F 68 16 155/64 95 09/29/16 08:38 09/28/16 08:00 09/29/16 04:00 09/29/16 04:24 09/29/16 04:00 - Additional Data Intake & Output - Last 24 hours: Intake & Output 09/27/16 09/28/16 09/29/16 09/30/16 05:59 05:59 05:59 05:59 Intake Total 1300 / 1300 1870 / 1870 2644 / 2644 150 / 150 Output Total 1126 / 1126 1655 / 1655 1475 / 1475 Balance 174 / 174 215 / 215 1169 / 1169 150 / 150 Weight 174 lb 8 oz 172 lb 174 lb - General physical appearance well developed, no distress, no pain - Eyes PERRL - ENT no congestion - Neck no venous distension - Respiratory normal expansion, normal respiratory effort, clear to auscultation - Cardiovascular Cardiovascular exam: Present: irregular rhythm, +S1, +S2. Absent: JVD - Abdomen soft, tender, bowel sounds (Abdomen is soft and nondistended he has good active bowel sounds. There is mild bleeding around the staple line.) - Integumentary no rash, no growths, no abnormal pigmentation - Neurologic normal coordination, normal sensation - Musculoskeletal normal gait, normal posture - Psychiatric oriented to time, oriented to person, oriented to place, speech is normal, memory intact - Labs 09/29/16 03:58 09/29/16 03:58 Diabetes panel 09/29/16 Range/Units 03:58 Sodium 140 (133-145) mmol/L Potassium 3.8 (3.3-5.1) mmol/L Chloride 105 (96-108) mmol/L Carbon Dioxide 24 (22-30) mmol/L BUN 14 (8-23) mg/dl Creatinine 0.9 (0.7-1.2) mg/dl Glucose 73 (70-105) mg/dL Calcium 7.8 L (8.6-10.4) mg/dl AST 24 (0-37) U/l ALT 9 (0-40) U/l Alkaline Phosphatase 48 (39-117) U/L Total Protein 5.6 L (5.9-8.4) gm/dL Albumin 2.9 L (3.2-5.2) gm/dL Triglycerides 50 (<150) mg/dl Calcium panel 09/29/16 Range/Units 03:58 Calcium 7.8 L (8.6-10.4) mg/dl Phosphorus 1.3 L (2.7-4.5) mg/dL Albumin 2.9 L (3.2-5.2) gm/dL Pituitary panel 09/29/16 Range/Units 03:58 Sodium 140 (133-145) mmol/L Potassium 3.8 (3.3-5.1) mmol/L Chloride 105 (96-108) mmol/L Carbon Dioxide 24 (22-30) mmol/L BUN 14 (8-23) mg/dl Creatinine 0.9 (0.7-1.2) mg/dl Glucose 73 (70-105) mg/dL Calcium 7.8 L (8.6-10.4) mg/dl Adrenal panel 09/29/16 Range/Units 03:58 Sodium 140 (133-145) mmol/L Potassium 3.8 (3.3-5.1) mmol/L Chloride 105 (96-108) mmol/L Carbon Dioxide 24 (22-30) mmol/L BUN 14 (8-23) mg/dl Creatinine 0.9 (0.7-1.2) mg/dl Glucose 73 (70-105) mg/dL Calcium 7.8 L (8.6-10.4) mg/dl Total Bilirubin 1.0 (0.0-1.0) mg/dL AST 24 (0-37) U/l ALT 9 (0-40) U/l Alkaline Phosphatase 48 (39-117) U/L Total Protein 5.6 L (5.9-8.4) gm/dL Albumin 2.9 L (3.2-5.2) gm/dL Assessment and Plan (1) Malignant neoplasm of sigmoid colon Status: Acute Assessment and plan: Stable status post sigmoid segmental resection Current Visit: Yes (2) Essential hypertension Status: Acute Assessment and plan: Blood pressure is controlled Current Visit: Yes (3) Anticoagulated on Coumadin Status: Acute Current Visit: No (4) Atrial fibrillation Status: Acute Assessment and plan: Chronic atrial fibrillation with controlled response without tachycardia Current Visit: No (5) Rectal bleeding Status: Acute Current Visit: No - Time Spent With Patient Total time spent is greater than 50% in coordination of care (as documented) at patient's floor/unit and/or counseling patient:
[2016-09-29] MEDS ORDERED: hydrALAZINE 20 MG/ML VIAL IV PRN (16:14)
[2016-09-29] MEDS ORDERED: hydrALAZINE 20 MG/ML VIAL ONE ×2 (16:31→19:53)
[2016-09-29] MEDS: 0.9 % SODIUM CHLORIDE 10 ML SYRINGE IV SCH (16:31)
[2016-09-30] MEDS: metroNIDAZOLE 500 MG/100 ML BAG IV SCH ×4 (00:43→18:25)
[2016-09-30] MEDS: hydrALAZINE 20 MG/ML VIAL IV PRN ×2 (04:20→23:40)
[2016-09-30] MEDS: PIPERACILLIN SODIUM/TAZOBACTAM 3.375 GM in DEXTROSE 5% IN WATER 50 ML IV SCH ×4 (05:14→23:33)
[2016-09-30 05:40] LABS: Basophils # (Auto) 0.1 K/mcL (0.0-0.3); Basophils % (Auto) 0.7 % (0.0-2.0); Eosinophils # (Auto) 0.1 K/mcL (0.0-0.7); Granulocytes % (Auto) 69.7 % (38.0-78.0); Lymphocytes # (Auto) 1.9 K/mcL (1.5-4.8); Lymphocytes % (Auto) 22.1 % (15.5-49.0); Mean Cell Volume 95.3 fL (80.0-100.0); Mean Corpuscular HGB Conc 33.4 g/dL (31.0-36.0); Mean Corpuscular Hemoglobin 31.8 pg (26.0-34.0); Monocytes # (Auto) 0.6 K/mcL (0.1-0.9); Monocytes % (Auto) 6.5 % (1.0-12.0); Platelet Count 183 K/mcL (140-440); RBC 4.16 M/mcL (4.50-5.90); Red Cell Distribution Width 12.3 % (11.5-14.5)
[2016-09-30 05:55] LABS: ALT/SGPT 9 U/l (0-40); Albumin/Globulin Ratio 1.1 (1.0-2.3); Alkaline Phosphatase 47 U/L (39-117); Bilirubin,Direct 0.3 mg/dL (0.0-0.3); Blood Urea Nitrogen 11 mg/dl (8-23); Gamma Glutamyl Transpeptidase 15 U/L (8-61); Magnesium 1.8 mg/dL (1.6-2.5); Uric Acid 3.4 mg/dL (2.5-8.0)
[2016-09-30] MEDS: FAMOTIDINE/PF 20 MG/2 ML VIAL IV SCH ×2 (09:00→20:32)
[2016-09-30] MEDS: 0.9 % SODIUM CHLORIDE 1,000 ML IV SCH ×3 (09:38→20:30)
--- NOTE | 2016-09-30 10:59 | Colonoscopy Procedure Note ---
Colonoscopy Procedure Notes - Procedure Information Patient information: Note initiated : 09/30/16 at 10:55 am Service Date: 09/26/16 Patient: Lenny Madden 86 y/o M admitted on 09/26/16 for Colonoscopy. Pre-op diagnosis general: Hematochezia. Post-op diagnosis general: Sigmoid colon cancer. Colonic polyps. Procedure narrative: The procedure, alternatives and risks were discussed with the patient and the patient's questions were answered. With intravenous sedation, the Olympus colonoscope was introduced into the rectum and advanced to the cecum. Ileocecal valve was identified, intubated, and several centimeters of the terminal ileum were examined and appeared normal. An ulcerated sigmoid cancer was seen in the mid sigmoid colon, involving approximately half of the colon wall. It was biopsied and tattoos were placed above and below the mass. Colonic polyps were seen in the ascending colon and were removed with a cold snare. They were retrieved for histological examination. Diverticula appear uncomplicated. Assessment: Sigmoid colon cancer. Colonic polyps. Dr. Dony Cortes, surgeon, was brought in to review the case and will arrange for resection.
[2016-09-30] MEDS: METOCLOPRAMIDE 10 MG/2 ML VIAL IV SCH ×3 (11:12→23:35)
--- NOTE | 2016-09-30 15:24 | General Surgery Progress Note ---
Subjective Patient reports: feels better, pain is less, flatus, no bowel movement, afebrile Narrative: Note initiated : 09/30/16 at 3:22 pm Service Date, if different from initiated Date: [] Patient: Lenny Madden 86 y/o M admitted on 09/26/16 for Colonoscopy. Chief Complaint: [Patient is doing well. He has no chest pain or shortness of breath. His cardiac rhythm has been atrial fibrillation with controlled response with average heart rate in the 80s. He denies nausea at this time though he had some vomiting earlier this a.m. He has started to pass flatus. He denies abdominal pain. His DENA drainage is serosanguineous.] Objective Temp Pulse Resp BP Pulse Ox 99.3 F H 80 18 157/86 95 09/30/16 13:28 09/30/16 13:28 09/30/16 13:28 09/30/16 13:28 09/30/16 13:28 - Additional Data Intake & Output - Last 24 hours: Intake & Output 09/28/16 09/29/16 09/30/16 10/01/16 05:59 05:59 05:59 05:59 Intake Total 1870 / 1870 2644 / 2644 2329.0909 / 2329.0909 2300 / 2300 Output Total 1655 / 1655 1475 / 1475 2255 / 2255 300 / 300 Balance 215 / 215 1169 / 1169 74.0909 / 74.0909 1999 Weight 172 lb 174 lb 173 lb - General physical appearance well nourished, no distress, no pain - Eyes PERRL - ENT no congestion - Neck no venous distension - Respiratory normal respiratory effort, clear to auscultation - Cardiovascular Cardiovascular exam: Present: irregular rhythm, +S1, +S2 - Abdomen soft, tender, bowel sounds, distended (Abdomen is nondistended he has good active bowel sounds; is DENA drainage is serosanguineous.) - Integumentary no rash, no growths, no abnormal pigmentation - Musculoskeletal normal gait, normal posture - Psychiatric oriented to time, oriented to person, oriented to place, speech is normal, memory intact - Labs 09/30/16 03:50 09/30/16 03:50 Diabetes panel 09/30/16 Range/Units 03:50 Sodium 139 (133-145) mmol/L Potassium 3.7 (3.3-5.1) mmol/L Chloride 104 (96-108) mmol/L Carbon Dioxide 23 (22-30) mmol/L BUN 11 (8-23) mg/dl Creatinine 0.8 (0.7-1.2) mg/dl Glucose 83 (70-105) mg/dL Calcium 7.9 L (8.6-10.4) mg/dl AST 24 (0-37) U/l ALT 9 (0-40) U/l Alkaline Phosphatase 47 (39-117) U/L Total Protein 5.7 L (5.9-8.4) gm/dL Albumin 3.0 L (3.2-5.2) gm/dL Triglycerides 55 (<150) mg/dl Calcium panel 09/30/16 Range/Units 03:50 Calcium 7.9 L (8.6-10.4) mg/dl Phosphorus 1.9 L (2.7-4.5) mg/dL Albumin 3.0 L (3.2-5.2) gm/dL Pituitary panel 09/30/16 Range/Units 03:50 Sodium 139 (133-145) mmol/L Potassium 3.7 (3.3-5.1) mmol/L Chloride 104 (96-108) mmol/L Carbon Dioxide 23 (22-30) mmol/L BUN 11 (8-23) mg/dl Creatinine 0.8 (0.7-1.2) mg/dl Glucose 83 (70-105) mg/dL Calcium 7.9 L (8.6-10.4) mg/dl Adrenal panel 09/30/16 Range/Units 03:50 Sodium 139 (133-145) mmol/L Potassium 3.7 (3.3-5.1) mmol/L Chloride 104 (96-108) mmol/L Carbon Dioxide 23 (22-30) mmol/L BUN 11 (8-23) mg/dl Creatinine 0.8 (0.7-1.2) mg/dl Glucose 83 (70-105) mg/dL Calcium 7.9 L (8.6-10.4) mg/dl Total Bilirubin 1.0 (0.0-1.0) mg/dL AST 24 (0-37) U/l ALT 9 (0-40) U/l Alkaline Phosphatase 47 (39-117) U/L Total Protein 5.7 L (5.9-8.4) gm/dL Albumin 3.0 L (3.2-5.2) gm/dL Assessment and Plan (1) Malignant neoplasm of sigmoid colon Status: Acute Assessment and plan: Stable status post sigmoid segmental resection Current Visit: Yes (2) Essential hypertension Status: Acute Assessment and plan: Blood pressure is controlled Current Visit: Yes (3) Anticoagulated on Coumadin Status: Acute Current Visit: No (4) Atrial fibrillation Status: Acute Assessment and plan: Chronic atrial fibrillation with controlled response without tachycardia Current Visit: No (5) Rectal bleeding Status: Acute Current Visit: No - Time Spent With Patient Total time spent is greater than 50% in coordination of care (as documented) at patient's floor/unit and/or counseling patient:
[2016-10-01] MEDS: metroNIDAZOLE 500 MG/100 ML BAG IV SCH ×2 (00:46→07:10)
[2016-10-01] MEDS: PIPERACILLIN SODIUM/TAZOBACTAM 3.375 GM in DEXTROSE 5% IN WATER 50 ML IV SCH (05:28)
[2016-10-01] MEDS: METOCLOPRAMIDE 10 MG/2 ML VIAL IV SCH ×3 (05:29→18:27)
[2016-10-01 07:08] LABS: Basophils # (Auto) 0 K/mcL (0.0-0.3); Basophils % (Auto) 0.2 % (0.0-2.0); Eosinophils # (Auto) 0 K/mcL (0.0-0.7); Eosinophils % (Auto) 0.6 % (0.0-7.0); Granulocytes % (Auto) 77.3 % (38.0-78.0); Lymphocytes % (Auto) 14.8 % (15.5-49.0); Mean Cell Volume 96.9 fL (80.0-100.0); Mean Corpuscular HGB Conc 33.2 g/dL (31.0-36.0); Mean Corpuscular Hemoglobin 32.2 pg (26.0-34.0); Monocytes # (Auto) 0.5 K/mcL (0.1-0.9); Monocytes % (Auto) 7.1 % (1.0-12.0); Platelet Count 220 K/mcL (140-440); RBC 4.16 M/mcL (4.50-5.90); Red Cell Distribution Width 13.4 % (11.5-14.5)
[2016-10-01] MEDS: FAMOTIDINE/PF 20 MG/2 ML VIAL IV SCH ×2 (08:17→20:41)
[2016-10-01] MEDS: 0.9 % SODIUM CHLORIDE 1,000 ML IV SCH ×3 (08:33→22:10)
[2016-10-01 09:14] LABS: ALT/SGPT 12 U/l (0-40); Albumin 3.1 gm/dL (3.2-5.2); Albumin/Globulin Ratio 1.1 (1.0-2.3); Alkaline Phosphatase 45 U/L (39-117); Bilirubin,Direct < 0.2 mg/dL (0.0-0.3); Blood Urea Nitrogen 13 mg/dl (8-23); Gamma Glutamyl Transpeptidase 16 U/L (8-61); Magnesium 1.9 mg/dL (1.6-2.5); Uric Acid 3.9 mg/dL (2.5-8.0)
[2016-10-01] MEDS: hydrALAZINE 20 MG/ML VIAL IV PRN ×2 (10:39→18:26)
--- NOTE | 2016-10-01 11:04 | General Surgery Progress Note ---
Subjective Patient reports: feels better, pain is less, flatus, bowel movement, diarrhea, afebrile Narrative: Note initiated : 10/01/16 at 11:02 am Service Date, if different from initiated Date: [] Patient: Lenny Madden 86 y/o M admitted on 09/26/16 for Colonoscopy. Chief Complaint: [Patient continues to improve. He has had copious flatus and multiple bowel movements. Nasogastric tube has been discontinued and he has been started on clear liquid diet. He has not had any arrhythmias and his blood pressure is fairly well-controlled so he can be moved to [facility] when available.] Objective Temp Pulse Resp BP Pulse Ox 98.3 F 94 H 18 169/91 95 10/01/16 09:00 10/01/16 09:00 10/01/16 09:00 10/01/16 09:13 10/01/16 04:47 - Additional Data Intake & Output - Last 24 hours: Intake & Output 09/29/16 09/30/16 10/01/16 10/02/16 05:59 05:59 05:59 05:59 Intake Total 2644 / 2644 2329.0909 / 2329.0909 4760 / 4760 150 / 150 Output Total 1475 / 1475 2255 / 2255 1455 / 1455 Balance 1169 / 1169 74.0909 / 74.0909 3305 / 3305 150 / 150 Weight 174 lb 173 lb 170 lb - General physical appearance no distress, no pain - Eyes PERRL - ENT no congestion - Neck no venous distension - Respiratory clear to auscultation - Cardiovascular Cardiovascular exam: Present: irregular rhythm, +S1, +S2, tachycardia. Absent: JVD - Abdomen soft, non tender, bowel sounds (Abdomen is nondistended. He has good active bowel sounds. His incision looks good.) - Integumentary no rash, no growths, no abnormal pigmentation - Neurologic normal coordination, normal sensation - Musculoskeletal normal gait, normal posture - Psychiatric oriented to time, oriented to person, oriented to place, speech is normal, memory intact - Labs 10/01/16 06:01 10/01/16 06:01 Diabetes panel 10/01/16 Range/Units 06:01 Sodium 146 H (133-145) mmol/L Potassium 3.4 (3.3-5.1) mmol/L Chloride 107 (96-108) mmol/L Carbon Dioxide 22 (22-30) mmol/L BUN 13 (8-23) mg/dl Creatinine 0.7 (0.7-1.2) mg/dl Glucose 103 (70-105) mg/dL Calcium 8.1 L (8.6-10.4) mg/dl AST 22 (0-37) U/l ALT 12 (0-40) U/l Alkaline Phosphatase 45 (39-117) U/L Total Protein 5.9 (5.9-8.4) gm/dL Albumin 3.1 L (3.2-5.2) gm/dL Triglycerides 55 (<150) mg/dl Calcium panel 10/01/16 Range/Units 06:01 Calcium 8.1 L (8.6-10.4) mg/dl Phosphorus 1.9 L (2.7-4.5) mg/dL Albumin 3.1 L (3.2-5.2) gm/dL Pituitary panel 10/01/16 Range/Units 06:01 Sodium 146 H (133-145) mmol/L Potassium 3.4 (3.3-5.1) mmol/L Chloride 107 (96-108) mmol/L Carbon Dioxide 22 (22-30) mmol/L BUN 13 (8-23) mg/dl Creatinine 0.7 (0.7-1.2) mg/dl Glucose 103 (70-105) mg/dL Calcium 8.1 L (8.6-10.4) mg/dl Adrenal panel 10/01/16 Range/Units 06:01 Sodium 146 H (133-145) mmol/L Potassium 3.4 (3.3-5.1) mmol/L Chloride 107 (96-108) mmol/L Carbon Dioxide 22 (22-30) mmol/L BUN 13 (8-23) mg/dl Creatinine 0.7 (0.7-1.2) mg/dl Glucose 103 (70-105) mg/dL Calcium 8.1 L (8.6-10.4) mg/dl Total Bilirubin 0.9 (0.0-1.0) mg/dL AST 22 (0-37) U/l ALT 12 (0-40) U/l Alkaline Phosphatase 45 (39-117) U/L Total Protein 5.9 (5.9-8.4) gm/dL Albumin 3.1 L (3.2-5.2) gm/dL Assessment and Plan (1) Malignant neoplasm of sigmoid colon Status: Acute Assessment and plan: Stable status post sigmoid segmental resection Current Visit: Yes (2) Essential hypertension Status: Acute Assessment and plan: Blood pressure is controlled Current Visit: Yes (3) Anticoagulated on Coumadin Status: Acute Current Visit: No (4) Atrial fibrillation Status: Acute Assessment and plan: Chronic atrial fibrillation with controlled response without tachycardia Current Visit: No (5) Rectal bleeding Status: Acute Current Visit: No - Time Spent With Patient Total time spent is greater than 50% in coordination of care (as documented) at patient's floor/unit and/or counseling patient:
[2016-10-01] MEDS ORDERED: HYDROmorphone 2 MG/ML SYRINGE IV PRN (12:02)
[2016-10-01] MEDS ORDERED: ONDANSETRON 4 MG/2 ML VIAL IV PRN (12:02)
--- NOTE | 2016-10-01 13:13 | Surgical Pathology Report ---
HISTOLOGY SPECIMEN MICROSCOPIC DIAGNOSIS COLON, SIGMOID, SEGMENTAL RESECTION: -- INVASIVE MODERATELY DIFFERENTIATED COLORECTAL ADENOCARCINOMA. - SIZE: 3.0 X 2.5 cm. - DEPTH OF INVASION: TRANSMURAL, WITH PENETRATION OF MUSCULARIS PROPRIA AND EXTENSION INTO SUBADJACENT ADIPOSE TISSUE, WITH A MAXIMUM THICKNESS OF 1.6 cm. - LYMPH-VASCULAR INVASION: NOT IDENTIFIED. - PERINEURAL INVASION: NOT IDENTIFIED. - LYMPH NODES: ALL 22 PARACOLONIC LYMPH NODES NEGATIVE FOR METASTATIC CARCINOMA. - SURGICAL MARGINS FREE OF MALIGNANCY, CLOSEST IS OPEN MARGIN AT 2.1 cm. - PATHOLOGIC STAGE: pT3 pN0 MX -- ADDITIONAL FINDINGS: DIVERTICULAR DISEASE. (ACP:manjit) COMMENT: The invasive mass has a broad area of ulceration with large infiltrative glandular structure complex with abundant central necrosis, inflammation and desmoplasia. There is no associated polyp. The tumor penetrates muscularis propria with involvement with pericolonic adipose tissue. The appearance of the invasive tumor suggests possible involvement of a diverticulum. However, the tumor does infiltrate pericolorectal tissue. SUMMARY CANCER DATA Specimen: Sigmoid colon Procedure: Segmental resection/sigmoidectomy Tumor Site: Sigmoid Tumor Size: 3.0 x 2.5 cm with thickness of 1.6 cm Macroscopic tumor perforation: Not identified Histologic Type: Adenocarcinoma Histologic Grade: G2 (moderately differentiated) Microscopic Tumor Extension: Tumor invades through muscularis propria into pericolorectal tissue Lymph-Vascular Invasion: Not identified Perineural Invasion: Not identified Tumor Deposits (discontinuous extramural extension): Not identified Associated Polyp: Not identified Treatment Effect: No know presurgical therapy Margins: Stapled Margin: 3.5 cm Open Margin: 2.1 cm Circumferential (Radial) or Mesenteric Margin: 3.9 cm Distance of invasive carcinoma from closest margin: 2.1 cm Lymph nodes: Number of Lymph Nodes examined: 22 Number of Lymph Nodes involved: 0 Pathologic Stage: pT3 pN0 MX PROCEDURAL IMPRESSION Malignant neoplasm of sigmoid. GROSS DESCRIPTION The specimen is received in formalin labeled sigmoid colon mass and consists of a segmental resection of colon that measures 8.5 cm in length with a diameter of 2.2 cm. Areas of black pigment are noted within the serosa. Otherwise, the serosa has pink-perez color with central region of hyperemia. Pericolonic adipose tissue has numerous attached juan david and measures up to 5.0 cm in thickness. One of the colonic margins is stapled and the other is open. The resected mesenteric margin is inked black. The specimen is opened revealing an ulcerated central mass that measures 3.0 x 2.5 cm and is present 2.1 cm from the open margin and 3.5 cm from the stapled margin. The mass is sectioned revealing penetration of the bowel wall with a maximum thickness of 1.6 cm. The tumor infiltrates associated adipose tissue and is present 3.9 cm from the mesenteric/radial margin. There is black dye underlying the mucosa between the tumor and the open margin. No additional mass lesions are seen. A few diverticula are noted, one of which contains a soft light brown fecalith. A few lymph nodes are identified within the attached paracolonic adipose tissue, no lesion grossly suspicious for metastatic disease is seen. Sections submitted according to the following slide richardson: A1 - proximal and distal and mesenteric margins (stapled margin and radial margin inked black); A2-A4 - cross sections of mass; A5 - cross section of mass with adjacent mucosa, towards open margin; A6 - international account representative mucosa, including diverticula; A7-A10 - possible paracolonic lymph nodes (A7, A8 and A9 each have a bisected lymph node - inked black, A10 has one bisected node inked black and a second bisected node inked blue). (ACP:adj) Electronically Signed by: Myles Schmidt M.D.
[2016-10-02] MEDS: METOCLOPRAMIDE 10 MG/2 ML VIAL IV SCH ×4 (00:01→18:14)
[2016-10-02] MEDS: hydrALAZINE 20 MG/ML VIAL IV PRN ×2 (00:01→04:40)
[2016-10-02] MEDS: 0.9 % SODIUM CHLORIDE 1,000 ML IV SCH ×3 (04:40→20:50)
[2016-10-02 06:29] LABS: Basophils # (Auto) 0 K/mcL (0.0-0.3); Basophils % (Auto) 0.2 % (0.0-2.0); Eosinophils # (Auto) 0.1 K/mcL (0.0-0.7); Eosinophils % (Auto) 1.7 % (0.0-7.0); Granulocytes % (Auto) 72.7 % (38.0-78.0); Lymphocytes # (Auto) 1.6 K/mcL (1.5-4.8); Lymphocytes % (Auto) 18.9 % (15.5-49.0); Mean Cell Volume 97.3 fL (80.0-100.0); Mean Corpuscular Hemoglobin 32.1 pg (26.0-34.0); Monocytes # (Auto) 0.5 K/mcL (0.1-0.9); Monocytes % (Auto) 6.5 % (1.0-12.0); Platelet Count 237 K/mcL (140-440); RBC 4.05 M/mcL (4.50-5.90); Red Cell Distribution Width 13.6 % (11.5-14.5)
[2016-10-02 07:17] LABS: ALT/SGPT 11 U/l (0-40); Albumin/Globulin Ratio 1.2 (1.0-2.3); Alkaline Phosphatase 42 U/L (39-117); Bilirubin,Direct < 0.2 mg/dL (0.0-0.3); Blood Urea Nitrogen 12 mg/dl (8-23); Gamma Glutamyl Transpeptidase 18 U/L (8-61); Magnesium 1.8 mg/dL (1.6-2.5); Uric Acid 4.5 mg/dL (2.5-8.0)
[2016-10-02] MEDS: FAMOTIDINE/PF 20 MG/2 ML VIAL IV SCH ×2 (08:38→20:56)
[2016-10-02] MEDS: amLODIPine 5 MG TABLET PO SCH (08:38)
[2016-10-02] MEDS ORDERED: amLODIPine 5 MG TABLET PO SCH (09:00)
--- NOTE | 2016-10-02 16:17 | General Surgery Progress Note ---
Subjective Patient reports: feels better, still having pain, pain is less, tolerating liquids well, flatus, bowel movement, nausea, afebrile Narrative: Note initiated : 10/02/16 at 4:15 pm Service Date, if different from initiated Date: [] Patient: Lenny Madden 86 y/o M admitted on 09/26/16 for Colonoscopy. Chief Complaint: [Patient continues to do well. He had some nausea this morning but it was more related to the liquid diet. He complains of hunger and wishes to eat solid foods. He has had multiple bowel movements and is passing flatus. He has no complaints. He has not had tachycardia or atrial fibrillation. Blood pressure and heart rate has been controlled.] Objective Temp Pulse Resp BP Pulse Ox 98.4 F 112 H 20 155/85 96 10/02/16 11:44 10/02/16 08:00 10/02/16 11:44 10/02/16 11:44 10/02/16 11:44 - Additional Data Intake & Output - Last 24 hours: Intake & Output 09/30/16 10/01/16 10/02/16 10/03/16 05:59 05:59 05:59 05:59 Intake Total 2329.0909 / 2329.0909 4760 / 4760 1610 / 1610 1921 / 1921 Output Total 2255 / 2255 1455 / 1455 222 / 222 400 / 400 Balance 74.0909 / 74.0909 3305 / 3305 1388 / 1388 1521 / 1521 Weight 173 lb 170 lb 169 lb 169 lb - General physical appearance no distress, no pain - Eyes PERRL - ENT no congestion - Neck no venous distension - Respiratory normal expansion, normal respiratory effort, clear to auscultation - Cardiovascular Cardiovascular exam: Present: irregular rhythm, +S1, +S2. Absent: JVD - Abdomen soft, non tender, bowel sounds (Abdomen is nondistended with good active bowel sounds. Incision looks good. DENA drainage is serosanguineous.) Hernia: none - Integumentary no rash, no growths, no abnormal pigmentation - Neurologic normal coordination, normal sensation - Musculoskeletal normal gait, normal posture - Psychiatric oriented to time, oriented to person, oriented to place, speech is normal, memory intact - Labs 10/02/16 04:24 10/02/16 04:24 Diabetes panel 10/02/16 Range/Units 04:24 Sodium 145 (133-145) mmol/L Potassium 3.3 (3.3-5.1) mmol/L Chloride 107 (96-108) mmol/L Carbon Dioxide 24 (22-30) mmol/L BUN 12 (8-23) mg/dl Creatinine 0.6 L (0.7-1.2) mg/dl Glucose 85 (70-105) mg/dL Calcium 7.9 L (8.6-10.4) mg/dl AST 21 (0-37) U/l ALT 11 (0-40) U/l Alkaline Phosphatase 42 (39-117) U/L Total Protein 5.6 L (5.9-8.4) gm/dL Albumin 3.0 L (3.2-5.2) gm/dL Triglycerides 53 (<150) mg/dl Calcium panel 10/02/16 Range/Units 04:24 Calcium 7.9 L (8.6-10.4) mg/dl Phosphorus 1.3 L (2.7-4.5) mg/dL Albumin 3.0 L (3.2-5.2) gm/dL Pituitary panel 10/02/16 Range/Units 04:24 Sodium 145 (133-145) mmol/L Potassium 3.3 (3.3-5.1) mmol/L Chloride 107 (96-108) mmol/L Carbon Dioxide 24 (22-30) mmol/L BUN 12 (8-23) mg/dl Creatinine 0.6 L (0.7-1.2) mg/dl Glucose 85 (70-105) mg/dL Calcium 7.9 L (8.6-10.4) mg/dl Adrenal panel 10/02/16 Range/Units 04:24 Sodium 145 (133-145) mmol/L Potassium 3.3 (3.3-5.1) mmol/L Chloride 107 (96-108) mmol/L Carbon Dioxide 24 (22-30) mmol/L BUN 12 (8-23) mg/dl Creatinine 0.6 L (0.7-1.2) mg/dl Glucose 85 (70-105) mg/dL Calcium 7.9 L (8.6-10.4) mg/dl Total Bilirubin 1.0 (0.0-1.0) mg/dL AST 21 (0-37) U/l ALT 11 (0-40) U/l Alkaline Phosphatase 42 (39-117) U/L Total Protein 5.6 L (5.9-8.4) gm/dL Albumin 3.0 L (3.2-5.2) gm/dL Assessment and Plan (1) Malignant neoplasm of sigmoid colon Status: Acute Assessment and plan: Stable status post sigmoid segmental resection. Neoplasm extends through the wall of the bowel but all 22 lymph nodes were negative for metastasis Current Visit: Yes (2) Essential hypertension Status: Acute Assessment and plan: Blood pressure is controlled Current Visit: Yes (3) Anticoagulated on Coumadin Status: Acute Current Visit: No (4) Atrial fibrillation Status: Acute Assessment and plan: Chronic atrial fibrillation with controlled response without tachycardia Current Visit: No (5) Rectal bleeding Status: Resolved Current Visit: No - Time Spent With Patient Total time spent is greater than 50% in coordination of care (as documented) at patient's floor/unit and/or counseling patient:
[2016-10-03] MEDS: METOCLOPRAMIDE 10 MG/2 ML VIAL IV SCH ×4 (05:28→17:51)
[2016-10-03] MEDS: 0.9 % SODIUM CHLORIDE 10 ML SYRINGE IV SCH ×5 (07:15→21:41)
[2016-10-03] MEDS ORDERED: POTASSIUM PHOSPHATE 40 MEQ in DEXTROSE 5% IN WATER 500 ML IV ONE ×2 (09:14→14:45)
[2016-10-03] MEDS ORDERED: MAGNESIUM SULFATE 32.48 MEQ in DEXTROSE 5% IN WATER 50 ML IV ONE (09:16)
[2016-10-03] MEDS: amLODIPine 5 MG TABLET PO SCH (09:35)
[2016-10-03] MEDS: FAMOTIDINE/PF 20 MG/2 ML VIAL IV SCH ×2 (09:36→21:41)
--- NOTE | 2016-10-03 12:10 | General Surgery Progress Note ---
Subjective Patient reports: feels better, pain is less, tolerating a regular diet, flatus, bowel movement, afebrile Narrative: Note initiated : 10/03/16 at 12:07 pm Service Date, if different from initiated Date: [] Patient: Lenny Madden 86 y/o M admitted on 09/26/16 for Colonoscopy. Chief Complaint: [Mr. Madden is doing well. He denies chest pain or shortness of breath. He has minimal abdominal pain. He does not have nausea and has tolerated a regular diet. He has had multiple bowel movements.] Objective Temp Pulse Resp BP Pulse Ox 99.2 F H 94 H 16 154/80 94 10/03/16 07:00 10/03/16 07:00 10/03/16 07:00 10/03/16 07:00 10/03/16 07:00 - Additional Data Intake & Output - Last 24 hours: Intake & Output 10/01/16 10/02/16 10/03/16 10/04/16 05:59 05:59 05:59 05:59 Intake Total 4760 / 4760 1610 / 1610 3551 / 3551 Output Total 1455 / 1455 222 / 222 770 / 770 225 / 225 Balance 3305 / 3305 1388 / 1388 2781 / 2781 -225 / -225 Weight 170 lb 169 lb 177 lb 9.6 oz - General physical appearance well developed, well nourished, no distress, no pain - Eyes PERRL - ENT no congestion - Neck no venous distension - Respiratory normal expansion, normal respiratory effort, clear to auscultation - Cardiovascular Cardiovascular exam: Present: irregular rhythm, +S1, +S2. Absent: JVD - Abdomen soft, non tender, bowel sounds (Abdomen is soft and nondistended. He has good active bowel sounds. His DENA drainage is serous.) - Integumentary no rash, no growths, no abnormal pigmentation - Musculoskeletal normal gait, normal posture - Psychiatric oriented to time, oriented to person, oriented to place, speech is normal, memory intact - Labs 10/02/16 04:24 10/02/16 04:24 Assessment and Plan (1) Malignant neoplasm of sigmoid colon Status: Acute Assessment and plan: Stable status post sigmoid segmental resection. Neoplasm extends through the wall of the bowel but all 22 lymph nodes were negative for metastasis Current Visit: Yes (2) Essential hypertension Status: Acute Assessment and plan: Blood pressure is controlled Current Visit: Yes (3) Anticoagulated on Coumadin Status: Acute Current Visit: No (4) Atrial fibrillation Status: Acute Assessment and plan: Chronic atrial fibrillation with controlled response without tachycardia Current Visit: No - Time Spent With Patient Total time spent is greater than 50% in coordination of care (as documented) at patient's floor/unit and/or counseling patient:
[2016-10-03] MEDS: hydrALAZINE 20 MG/ML VIAL IV PRN (17:59)
[2016-10-04] MEDS: METOCLOPRAMIDE 10 MG/2 ML VIAL IV SCH ×2 (00:59→06:15)
[2016-10-04] MEDS: 0.9 % SODIUM CHLORIDE 10 ML SYRINGE IV SCH (06:15)
[2016-10-04 08:47] LABS: Basophils # (Auto) 0 K/mcL (0.0-0.3); Basophils % (Auto) 0.2 % (0.0-2.0); Eosinophils # (Auto) 0.4 K/mcL (0.0-0.7); Eosinophils % (Auto) 5.4 % (0.0-7.0); Granulocytes % (Auto) 72.9 % (38.0-78.0); Lymphocytes # (Auto) 1.2 K/mcL (1.5-4.8); Lymphocytes % (Auto) 14.9 % (15.5-49.0); Mean Cell Volume 97.3 fL (80.0-100.0); Mean Corpuscular Hemoglobin 32.1 pg (26.0-34.0); Monocytes # (Auto) 0.5 K/mcL (0.1-0.9); Monocytes % (Auto) 6.6 % (1.0-12.0); Platelet Count 236 K/mcL (140-440); RBC 4.09 M/mcL (4.50-5.90); Red Cell Distribution Width 13.4 % (11.5-14.5)
[2016-10-04] MEDS: FAMOTIDINE/PF 20 MG/2 ML VIAL IV SCH (08:53)
[2016-10-04] MEDS: amLODIPine 5 MG TABLET PO SCH (08:53)
[2016-10-04 09:05] LABS: ALT/SGPT 12 U/l (0-40); Albumin 3.2 gm/dL (3.2-5.2); Albumin/Globulin Ratio 1.2 (1.0-2.3); Alkaline Phosphatase 46 U/L (39-117); Bilirubin,Direct < 0.2 mg/dL (0.0-0.3); Blood Urea Nitrogen 9 mg/dl (8-23); Gamma Glutamyl Transpeptidase 16 U/L (8-61); Magnesium 1.8 mg/dL (1.6-2.5); Uric Acid 3.9 mg/dL (2.5-8.0)
[2016-10-04] MEDS ORDERED: POTASSIUM PHOSPHATE 40 MEQ in DEXTROSE 5% IN WATER 500 ML IV ONE (09:36)
--- NOTE | 2016-10-04 10:30 | Discharge Summary ---
Providers - Providers Patient information: Note initiated : 10/04/16 at 10:25 am Service Date, if different from initiated Date: [] Patient: Lenny Madden 86 y/o M admitted on 09/26/16 for Colonoscopy. Chief Complaint: [] Date of admission: 09/26/16 Discharge date: 10/04/16 Attending physician: Erick moellerists Hospitalization Hospital course: 86-year-old male admitted on 26 September after endoscopy showed a large neoplasm of the sigmoid colon at about 18 cm. He had active bleeding at this time. He underwent laparotomy on 27 September and was found to have a large neoplasm that clinically extended through the wall but with no sick significant adenopathy of the mesentery and no evidence of liver metastasis. A segmental sigmoid colectomy was done with RE-anastomosis. During the postoperative. He had atrial fibrillation with fast ventricular response but this responded to IV digoxin and metoprolol. He has stabilized and now has atrial fibrillation with controlled ventricular rate in the 80s. He had episode of hypertension and has continued to have mild elevation of blood pressure in the 150-160 systolic range. He had early return of intestinal function and his diet was advanced without difficulty. He is presently stable and has recovered enough for discharged home. Discharge diagnosis: Moderately differentiated adenocarcinoma of sigmoid colon; negative nodes Secondary discharge diagnosis: Atrial fibrillation with fast ventricular response Rectal bleeding due to colonic neoplasm Reason for admission: Neoplasm sigmoid colon with active bleeding Procedures: Segmental left colectomy with re-anastomosis Complications: None Exam Temp Pulse Resp BP Pulse Ox 97.8 F 85 20 165/83 94 10/04/16 07:51 10/04/16 04:00 10/04/16 07:51 10/04/16 07:51 10/04/16 07:51 - General physical appearance well developed, well nourished, no distress - Eyes PERRL, normal ocular movement - ENT normal pinna, normal nares, normal mucosa, no hearing loss, no congestion - Head Head exam IM: Present: atraumatic, normocephalic - Neck no masses, no bruits, trachea midline, no lymphadectomy, no venous distension - Cardiovascular Cardiovascular exam IM: Present: irregular rhythm, +S1, +S2. Absent: JVD - Respiratory normal expansion, normal respiratory effort, clear to percussion, clear to auscultation - Abdomen Abdomen: Present: soft, non tender, bowel sounds Hernia: Present: none - Genitourinary Present: normal penis with no external lesions - Integumentary Present: no rash, no growths, no abnormal pigmentation - Neurologic Present: normal coordination, normal sensation - Musculoskeletal Present: normal gait, normal posture - Psychiatric Present: oriented to time, oriented to person, oriented to place, speech is normal, memory intact Discharge Plan - Patient/Caregiver Discharge Instructions Activity: increase activity as tolerated Diet: Regular Diet Additional Instructions: Increase activity as tolerated Regular diet as tolerated Office visit in 1 week Prescriptions: amLODIPine [Norvasc] 5 mg PO DAILY #30 tablet - Follow up Plan Disposition: Home, Self-Care Prognosis: Good Rehab Potential: Good I certify that the patient requires SNF services.: No Overall status at discharge: patient is progressing back to baseline Pending Studies Resuscitation Status Full Code Diet Dysphagia Advanced Diet Level 3 Start [address] 27 Breakfast Amlodipine Besylate (Norvasc) 5 mg PO DAILY [facility] Last Admin: 10/04/16 08:53 Dose: 5 mg Admin: 10/03/16 09:35 Dose: 5 mg Admin: 10/02/16 08:38 Dose: 5 mg Famotidine (Pepcid) 20 mg IV Q12 [facility] Last Admin: 10/04/16 08:53 Dose: 20 mg Admin: 10/03/16 21:41 Dose: 20 mg Admin: 10/03/16 09:36 Dose: 20 mg Admin: 10/02/16 20:56 Dose: 20 mg Admin: 10/02/16 08:38 Dose: 20 mg Admin: 10/01/16 20:41 Dose: 20 mg Hydralazine HCl (Apresoline) 10 mg IV Q4-6HP PRN PRN Reason: Hypertension Last Admin: 10/03/16 17:59 Dose: 10 mg Admin: 10/02/16 04:40 Dose: 10 mg Admin: 10/02/16 00:01 Dose: 10 mg Admin: 10/01/16 18:26 Dose: 10 mg Metoclopramide HCl (Reglan) 10 mg IV Q6 [facility] Last Admin: 10/04/16 06:15 Dose: 10 mg Admin: 10/04/16 00:59 Dose: 10 mg Admin: 10/03/16 17:51 Dose: 10 mg Admin: 10/03/16 12:11 Dose: 10 mg Admin: 10/03/16 05:28 Dose: 10 mg Admin: 10/03/16 00:00 Dose: 10 mg Admin: 10/02/16 18:14 Dose: 10 mg Admin: 10/02/16 12:30 Dose: 10 mg Admin: 10/02/16 05:40 Dose: 10 mg Admin: 10/02/16 00:01 Dose: 10 mg Admin: 10/01/16 18:27 Dose: 10 mg Ondansetron HCl (Zofran) 4 mg IV Q6HP PRN PRN Reason: Nausea And Vomiting Last Admin: 10/02/16 08:45 Dose: 4 mg Sodium Chloride (Saline Flush) 10 ml IV Q8 [place] Last Admin: 10/04/16 06:15 Dose: 10 ml Admin: 10/03/16 21:41 Dose: 10 ml Admin: 10/03/16 12:11 Dose: 10 ml Admin: 10/03/16 10:39 Dose: 10 ml Admin: 10/03/16 09:36 Dose: 10 ml Admin: 10/03/16 07:15 Dose: 10 ml Shift Summary 10/04/16 03:47 Shift Summary by Racquel Salazar Pt doing well. Transferred out from ICU yesterday. Received a couple K-Riders yesterday. Midline incision to abdomen looks good with juan david and tagaderm, scant amount of drainage to the dressing (it was changed yesterday). Voids per urinal. Up with SBA. 2 SL IV's to each FA. Alert and oriented, makes needs known. Hopes to d/c today. Initialized on 10/04/16 03:47 - END OF NOTE
== END 2016-10-04 13:00 | disposition home or self-care (01) | DRG 330 ==
LOC: SSSU 13:18 → MEDSUR 15:55 → ICU 09-27 13:38 → MEDSUR 10-03 14:45
PROVIDERS: ADMIT Family Medicine Adult Medicine; ATTEND Family Medicine Adult Medicine

== ENCOUNTER 2018-12-21 12:33 | Inpatient (IN) ==
--- NOTE | 2018-12-21 13:08 | Emergency Department Note ---
Fall HPI - General Chief Complaint: Fall Stated Complaint: fall Time Seen by Provider: 12/21/18 13:02 Source: EMS Mode of arrival: ambulatory - History of Present Illness HPI Narrative: Patient reports falling from a step as he turned coming out of a bank that was closed (accidentally went to the wrong bank) and did not realize there was a step and went sprawling landing on his right hip and right elbow causing pain in his right hip and a scrape of his elbow. He fell onto concrete. He has a previous history of a fractured arm, shoulder, collarbone. He was not lightheaded or dizzy and there was no other cause. There was no loss of consciousness and he did not hit his head. He is on Coumadin for what appears to be atrial fibrillation. No history of DVT or PE. REVIEW OF SYSTEMS: Denies chest pain, shortness of breath, nausea, vomiting, weakness, lightheaded or dizziness. - Related Data Home Medications Medication Instructions Recorded Confirmed Fish Oil 1,000 mg PO DAILY 09/03/16 12/21/18 Vit A,C & E/Lutein/Minerals 1 tab PO DAILY 09/03/16 12/21/18 [Ocuvite] Vitamin D3 1 cap PO DAILY 09/03/16 12/21/18 Furosemide [Lasix] 20 mg PO DAILY 12/21/18 12/21/18 Previous Rx's Medication Instructions Recorded lisinopril 10 1 tab PO QDAY #90 tab 02/26/18 mg-hydrochlorothiazide 12.5 mg tablet potassium chloride 10 mEq 10 meq PO QDAY #90 tab 09/11/18 tablet,extended release warfarin 1 mg tablet 0.5 mg PO QDAY #15 tab 12/21/18 warfarin 4 mg tablet 4 mg PO QDAY #30 tab 12/21/18 Allergies Allergy/AdvReac Type Severity Reaction Status Date / Time No Known Drug Allergies Allergy Verified 12/08/18 08:11 Fall PMH - Past Medical History Medical history: Reports: atrial fibrillation, cancer (: Status post removal), chronic anticoagulation (Warfarin), hypertension, other (Rheumatic fever). Denies: DVT, pulmonary embolus - Social History smoking status: Former smoker Alcohol use: Reports: None Drug use: Reports: none Physical Exam Limitations: physical limitation General appearance: alert, in no apparent distress Head: atraumatic, normocephalic Eye: Present: EOMI ENT: Present: mucous membranes moist (To slightly dry. Normal midline uvula and tongue) Neck: Present: trachea midline. Absent: lymphadenopathy, thyromegaly Chest: Present: symmetric chest wall rise Respiratory: Present: normal lung sounds bilaterally. Absent: respiratory distress, wheezes, stridor, accessory muscle use, prolonged expiratory phase Cardiovascular: Present: regular rate, normal rhythm. Absent: systolic murmur, diastolic murmur Abdominal: Present: soft. Absent: distention, tenderness, guarding, rebound, rigidity, organomegaly, mass Extremities: Present: other (Right lower leg is more comfortable with knee bent and is uncomfortable if he pushes down with his toes or moves it much.). Absent: pedal edema, pretibial edema, calf tenderness, cyanosis, clubbing Psychiatric: Present: normal affect, normal mood Skin: Present: warm, dry Course Vital Signs Temperature 99.3 F H 12/21/18 12:33 Pulse Rate 80 12/21/18 12:33 Respiratory Rate 18 12/21/18 12:33 Blood Pressure 178/95 12/21/18 12:33 Pulse Oximetry (%) 95 12/21/18 12:33 Temperature 99.3 F H 12/21/18 12:33 Pulse Rate 77 12/21/18 15:36 Respiratory Rate 20 12/21/18 15:36 Blood Pressure 153/86 12/21/18 15:36 Pulse Oximetry (%) 98 12/21/18 15:36 Fall - MDM Narrative Medical decision making narrative: 12:58 PM - interviewed and examined. Inadvertent fall while on blood thinner. No loss of consciousness or head injury but has right hip pain and a right elbow skin tear. Will do x-ray of the right hip and some basic labs. 2:17 PM - x-ray of the hip reveals: Oblique nondisplaced intertrochanteric fracture. Age-indeterminate. Consider pelvic CT 2:28 PM - spoke with Dr. Cervantes, system configuration specialist, is willing to consult on this patient. He is requesting that the INR be treated to come down below 1.5 for intervention and to have hospitalist to help do this/facilitate. Call out for hospitalist. 3:25 PM approximately - EKG with nonspecific changes and similar to previous EKG. On exam he seemed to have a slow and regular heart rate, i.e., not in A. fib. - Lab Data Lab results reviewed: Yes I reviewed the patient's lab results. Result diagrams: 12/21/18 13:25 12/21/18 13:25 Lab Results 12/21/18 12/21/18 12/21/18 Range/Units 13:25 13:25 13:25 WBC 6.9 (4.5-11.0) K/mcL RBC 4.47 L (4.50-5.90) M/mcL Hgb 14.2 (13.5-16.5) g/dL Hct 43.2 (41.0-55.0) % MCV 96.6 (80.0-100.0) fL MCH 31.8 (26.0-34.0) pg MCHC 32.9 (31.0-36.0) g/dL RDW 14.1 (11.5-14.5) % Plt Count 215 (140-440) K/mcL MPV 7.2 L (7.4-10.4) fL Gran % 78.9 H (38.0-78.0) % Lymph % (Auto) 15.0 L (15.5-49.0) % [place] % (Auto) 4.8 (1.0-12.0) % Eos % (Auto) 1.2 (0.0-7.0) % Baso % (Auto) 0.1 (0.0-2.0) % Gran # 5.4 (1.8-8.0) K/mcL Lymph # (Auto) 1.0 L (1.5-4.8) K/mcL [place] # (Auto) 0.3 (0.1-0.9) K/mcL Eos # (Auto) 0.1 (0.0-0.7) K/mcL Baso # (Auto) 0 (0.0-0.3) K/mcL PT 29.3 H (11.9-14.5) sec INR 2.8 H (0.9-1.1) Sodium 138 (133-145) mmol/L Potassium 4.3 (3.3-5.1) mmol/L Chloride 101 (96-108) mmol/L Carbon Dioxide 25 (22-30) mmol/L Anion Gap 12.0 (8-16) BUN 18 (8-23) mg/dl Creatinine 0.8 (0.7-1.2) mg/dl GFR Calculation 80 Glucose 109 H (70-105) mg/dL Calcium 9.3 (8.6-10.4) mg/dl Total Bilirubin 1.2 H (0.0-1.0) mg/dL AST 27 (0-37) U/l ALT 24 (0-40) U/l Alkaline Phosphatase 105 (39-117) U/L Total Protein 7.3 (5.9-8.4) gm/dL Albumin 4.0 (3.2-5.2) gm/dL Globulin 3.3 (2.2-3.7) gm/dL Albumin/Globulin Ratio 1.2 (1.0-2.3) Urine Color Urine Appearance Urine pH (5.0-9.0) Ur Specific [place] (1.000-1.035) Urine Protein (NEG) mg/dL Urine Glucose (UA) (NEG) mg/dL Urine Ketones (NEG) mg/dL Urine Occult Blood (<0.03) mg/dL Urine Nitrate (NEG) Urine Bilirubin (NEG) mg/dL Urine Urobilinogen (NEG) mg/dL Ur Leukocyte Esterase (NEG) /uL Urine RBC (0-1) /hpf Urine WBC (0-4) /hpf Ur Squamous Epith Cells (0-4) /hpf Urine Bacteria (0) /hpf Hyaline Casts (0-2) /lpf Urine Mucus (0) /hpf 10/14/19 Range/Units 13:27 WBC (4.5-11.0) K/mcL RBC (4.50-5.90) M/mcL Hgb (13.5-16.5) g/dL Hct (41.0-55.0) % MCV (80.0-100.0) fL MCH (26.0-34.0) pg MCHC (31.0-36.0) g/dL RDW (11.5-14.5) % Plt Count (140-440) K/mcL MPV (7.4-10.4) fL Gran % (38.0-78.0) % Lymph % (Auto) (15.5-49.0) % [place] % (Auto) (1.0-12.0) % Eos % (Auto) (0.0-7.0) % Baso % (Auto) (0.0-2.0) % Gran # (1.8-8.0) K/mcL Lymph # (Auto) (1.5-4.8) K/mcL [place] # (Auto) (0.1-0.9) K/mcL Eos # (Auto) (0.0-0.7) K/mcL Baso # (Auto) (0.0-0.3) K/mcL PT (11.9-14.5) sec INR (0.9-1.1) Sodium (133-145) mmol/L Potassium (3.3-5.1) mmol/L Chloride (96-108) mmol/L Carbon Dioxide (22-30) mmol/L Anion Gap (8-16) BUN (8-23) mg/dl Creatinine (0.7-1.2) mg/dl GFR Calculation Glucose (70-105) mg/dL Calcium (8.6-10.4) mg/dl Total Bilirubin (0.0-1.0) mg/dL AST (0-37) U/l ALT (0-40) U/l Alkaline Phosphatase (39-117) U/L Total Protein (5.9-8.4) gm/dL Albumin (3.2-5.2) gm/dL Globulin (2.2-3.7) gm/dL Albumin/Globulin Ratio (1.0-2.3) Urine Color Yellow Urine Appearance Clear Urine pH 6.0 (5.0-9.0) Ur Specific [place] 1.018 (1.000-1.035) Urine Protein 30 A (NEG) mg/dL Urine Glucose (UA) Negative (NEG) mg/dL Urine Ketones 5/tr A (NEG) mg/dL Urine Occult Blood Neg (<0.03) mg/dL Urine Nitrate Neg (NEG) Urine Bilirubin Neg (NEG) mg/dL Urine Urobilinogen Neg (NEG) mg/dL Ur Leukocyte Esterase Neg (NEG) /uL Urine RBC 2 H (0-1) /hpf Urine WBC < 1 (0-4) /hpf Ur Squamous Epith Cells 0 (0-4) /hpf Urine Bacteria 0 (0) /hpf Hyaline Casts 1 (0-2) /lpf Urine Mucus Few (0) /hpf - Radiology Data Radiology results reviewed: Yes I reviewed the patient's radiology results. Disposition Pt seen by [facility]ENE[facility] GRADER/PA only: No Clinical Impression: Abrasion, elbow w/o infection, Anticoagulated on Coumadin Fall from steps Qualifiers: Encounter type: initial encounter Qualified Code(s): W10.9XXA - Fall (on) (from) unspecified stairs and steps, initial encounter Fracture of hip, right, closed Qualifiers: Encounter type: initial encounter Qualified Code(s): S72.001A - Fracture of unspecified part of neck of right femur, initial encounter for closed fracture Atrial fibrillation Qualifiers: Atrial fibrillation type: unspecified Qualified Code(s): I48.91 - Unspecified atrial fibrillation Disposition: Xfer As Inpt ([facility]) Condition: Fair Referrals: Víctor Pelayo MD, FAAFP [Primary Care Provider] -
[2018-12-21 13:59] LABS: Appearance,Urine CLEAR; Bacteria,Urine 0 /hpf (0); Bilirubin,Urine NEG (NEG); Color,Urine YELLOW; Glucose,Urine (UA) NEGATIVE (NEG); Ketones,Urine 5/TR mg/dL (NEG); Leukocyte Esterase,Urine NEG /uL (NEG); Mucus,Urine FEW /hpf (0); Nitrate,Urine NEG (NEG); Protein,Urine 30 mg/dL (NEG); Specific Gravity,Urine 1.018 (1.000-1.035); Urine Blood NEG mg/dL (<0.03); Urine Hyaline Cast 1 /lpf (0-2); Urine RBC 2 /hpf (0-1); Urine Squamous Epithelial Cell 0 /hpf (0-4); Urine WBC < 1 /hpf (0-4); Urobilinogen,Urine NEG (NEG)
--- NOTE | 2018-12-21 14:00 | XRay Report ---
CLINICAL INFORMATION: fall; pain; can't wt bear COMPARISON: None. FINDINGS: There is an oblique intertrochanteric fracture of the right hip which may be incomplete. Age indeterminate. Both SI joints are unremarkable. Severe L3-4 L4-5 and L5-S1 degenerative disc disease noted. Soft tissues normal. IMPRESSION: Oblique nondisplaced intertrochanteric fracture. Age-indeterminate. Consider pelvic CT Interpreted and Authenticated by: Bryson De La Torre 12/21/18
[2018-12-21 14:03] LABS: Basophils # (Auto) 0 K/mcL (0.0-0.3); Basophils % (Auto) 0.1 % (0.0-2.0); Eosinophils # (Auto) 0.1 K/mcL (0.0-0.7); Eosinophils % (Auto) 1.2 % (0.0-7.0); Granulocytes % (Auto) 78.9 % (38.0-78.0); Hematocrit 43.2 % (41.0-55.0); Hemoglobin 14.2 g/dL (13.5-16.5); Mean Cell Volume 96.6 fL (80.0-100.0); Mean Corpuscular HGB Conc 32.9 g/dL (31.0-36.0); Mean Platelet Volume 7.2 fL (7.4-10.4); Monocytes # (Auto) 0.3 K/mcL (0.1-0.9); Monocytes % (Auto) 4.8 % (1.0-12.0); Platelet Count 215 K/mcL (140-440); RBC 4.47 M/mcL (4.50-5.90); Red Cell Distribution Width 14.1 % (11.5-14.5); WBC 6.9 K/mcL (4.5-11.0)
[2018-12-21 14:10] LABS: INR 2.8 (0.9-1.1); Prothrombin Time 29.3 sec (11.9-14.5)
[2018-12-21 14:18] LABS: ALT/SGPT 24 U/l (0-40); AST/SGOT 27 U/l (0-37); Albumin/Globulin Ratio 1.2 (1.0-2.3); Alkaline Phosphatase 105 U/L (39-117); Bilirubin,Total 1.2 mg/dL (0.0-1.0); Blood Urea Nitrogen 18 mg/dl (8-23); Calcium 9.3 mg/dl (8.6-10.4); Carbon Dioxide 25 mmol/L (22-30); Chloride 101 mmol/L (96-108); Globulin 3.3 gm/dL (2.2-3.7); Glomerular Filtration Rate 80; Glucose 109 mg/dL (70-105)
[2018-12-21] MEDS ORDERED: PHYTONADIONE 10 MG/ML AMPUL SQ ONE (16:23)
--- NOTE | 2018-12-21 16:27 | Internal Med History&Physical ---
Medical - H&P: HPI Patient information: Note initiated : 12/21/18 at 4:24 pm Service Date, if different from initiated Date: [] Patient: Lenny Madden 88 y/o M admitted on for fall. Chief Complaint: [] History of present illness: Mr. Madden is a 88 year old M Presents to the ED after falling developing sudden right hip pain. Patient went to the wrong bank today, he is switching [employer]. He went to the door it was locked he was frustrated turning around and walked briskly back to his car and forgot about the step and thus tripped. Falling on his right side with immediate pain. Denies any syncope or hitting his head. He fell onto the concrete. In the ED he was evaluated found to have a right intertrochanteric fracture. He is on warfarin for atrial fibrillation with an INR 2.8. Emergency was contacted sound like surgery planned for tomorrow. Patient denies any chest pain or shortness of breath, hip pain relatively well controlled in the ED. Review of Systems: Pertinent positives as above. Denies he adache/fever/chills/nausea/vomiting/chest or abdominal pain/cough/dyspnea/diarrhea. Remaining 10 point review of system reviewed negative Medical - H&P: PMH Medical history: Medical History (Last Updated 12/21/18 @ 15:38 by Alo Mireles DO) Anticoagulated on Coumadin (Chronic) Atrial fibrillation (Chronic) Malignant neoplasm of sigmoid colon (Chronic) Essential hypertension (Chronic) Hypertensive urgency (Resolved) Abnormal EKG (Chronic) Rectal bleeding (Resolved) History of rheumatic fever as a child (Chronic) Past Surgical History (Last Reviewed 10/08/18 @ 09:05 by Víctor Pelayo MD, [facility]) H/O colectomy (Acute ~09/27/16) Family history: States his mother is healthy and his father had lung cancer Social History (Last Updated 12/08/18 @ 08:31 by Víctor Pelayo MD, [facility]) Patient quit smoking in 1988 denies current alcohol use Lives at home with his Very active walker Medical - H&P: Meds Home Medications Medication Instructions Recorded Confirmed Type Fish Oil 1,000 mg PO DAILY 09/03/16 12/21/18 History Vit A,C & E/Lutein/Minerals 1 tab PO DAILY 09/03/16 12/21/18 History [Ocuvite] Vitamin D3 1 cap PO DAILY 09/03/16 12/21/18 History lisinopril 10 1 tab PO QDAY #90 tab 02/26/18 12/21/18 Rx mg-hydrochlorothiazide 12.5 mg tablet potassium chloride 10 mEq 10 meq PO QDAY #90 tab 09/11/18 12/21/18 Rx tablet,extended release Furosemide [Lasix] 20 mg PO DAILY 12/21/18 12/21/18 History warfarin 1 mg tablet 0.5 mg PO QDAY #15 tab 12/21/18 12/21/18 Rx warfarin 4 mg tablet 4 mg PO QDAY #30 tab 12/21/18 12/21/18 Rx Allergies Allergy/AdvReac Type Severity Reaction Status Date / Time No Known Drug Allergies Allergy Verified 12/08/18 08:11 Medical - H&P: Exam - Constitutional Vitals: Temp Pulse Resp BP Pulse Ox 99.3 F H 77 20 153/86 98 12/21/18 12:33 12/21/18 15:36 12/21/18 15:36 12/21/18 15:36 12/21/18 15:36 Exam: General: Alert, Awake, No acute Distress Eyes/N/T: EOMI, PEERL, Head/Neck: neck supple, normocephalic atraumatic CV: RRR, No murmurs, normal s1/s2 Pulm: Clear b/l, no wheezing/rhonchi/rales Abd: soft, nontender, +BS x4 Ext: no clubbing/cyanosis/edema. Neuro: Alert, no focal deficits, CN 2-12 grossly intact, sensations intact b/l upper/lower Skin: warm/dry Medical - H&P: Reslt - Labs CBC & Chem 7: 12/21/18 13:25 12/21/18 13:25 Labs: Short CBC 12/21/18 Range/Units 13:25 WBC 6.9 (4.5-11.0) K/mcL Hgb 14.2 (13.5-16.5) g/dL Hct 43.2 (41.0-55.0) % Plt Count 215 (140-440) K/mcL BMP 12/21/18 13:25 Sodium 138 Potassium 4.3 Chloride 101 Carbon Dioxide 25 BUN 18 Creatinine 0.8 Glucose 109 H Calcium 9.3 Liver Function 12/21/18 Range/Units 13:25 Total Bilirubin 1.2 H (0.0-1.0) mg/dL AST 27 (0-37) U/l ALT 24 (0-40) U/l Alkaline Phosphatase 105 (39-117) U/L Albumin 4.0 (3.2-5.2) gm/dL Urine 12/21/18 Range/Units 13:27 Urine Color Yellow Urine Appearance Clear Urine pH 6.0 (5.0-9.0) Ur Specific [place] 1.018 (1.000-1.035) Urine Protein 30 A (NEG) mg/dL Urine Glucose (UA) Negative (NEG) mg/dL - Impressions Hip x-ray with right intertrochanteric fracture Medical - H&P: A/P - Narrative A/P Narrative: A: *Right hip fracture, GLF from tripping: *PAF: on Coumadin, I do not see any beta-blockers *HTN: On lisinopril/hydrochlorothiazide per [facility] *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 P: -Dr. Cervantes for Ortho -Pain management -Monitor on telemetry perioperatively -vit K today, f/u INR in AM, will give FFP if needed in AM -monitor for delirium -pt/ot -ppx: resume warfarin post-op DNR
--- NOTE | 2018-12-21 16:45 | History and Physical Report ---
DATE OF ADMISSION: 12/21/2018 CHIEF COMPLAINT: Right hip pain. HISTORY OF PRESENT ILLNESS: The patient was at the bank earlier today. He was turning to leave when he missed a step and fell down onto his right hip. He states that he was slightly dizzy at the time due to his blood pressure being low. He was brought to the ED via ambulance. X-rays were taken which showed a nondisplaced intertrochanteric fracture. Orthopedics was then consulted for definitive treatment. PAST MEDICAL HISTORY: Atrial fibrillation, history of colon cancer, hypertension. PAST SURGICAL HISTORY: He does report a colectomy for his colon cancer. He has also had a surgery on his left hand. He severed several of his fingers and one was not able to be saved. SOCIAL HISTORY: The patient is a former smoker. He has smoked for many years but quit approximately 30 years ago. He states that he is an alcoholic, but he has cut down to only three drinks per day. No known drug use. MEDICATIONS: 1. Potassium. 2. Coumadin. ALLERGIES: No known drug allergies. PHYSICAL EXAMINATION: GENERAL: The patient is alert and oriented x3. He has appropriate mood and affect. No acute distress other than some moderate hip pain. HEART: Regular. LUNGS: Clear. EXTREMITIES: Left lower extremity has full active and passive range of motion of the hip and knee, as well as the ankle. He has got 5/5 strength in knee flexion, extension, as well as ankle plantar flexion and dorsiflexion. He has got palpable pedal and tibial pulses bilaterally. Right lower extremity he is unable to move due to pain. He is tender to palpation over the greater trochanter. IMAGING: X-rays do show a nondisplaced intertrochanteric fracture of the right hip. LABORATORY FINDINGS: Hemoglobin is 14.2. White count is 6.9. His INR is 2.8 IMPRESSION: Right hip nondisplaced intertrochanteric fracture. PLAN: The patient has elected to proceed with a right hip intramedullary nailing for his intertrochanteric fracture to be performed by Dr. Cervantes. RECOMMENDATIONS: I had a long discussion with the patient regarding the procedure and postoperative protocol. I went over risks including bleeding; infection; injury to nerves, blood vessels, other structures in the area; anesthetic risks, which could include heart attack, stroke, or even . The patient acknowledges these risks and is willing to proceed. He will be seen by the hospitalist to determine his risk stratification and will also treat his INR to get it into a nontherapeutic range. MAURICE:giselle Job ID: [id number] Doc ID: [id number] Mann Conway PA-C
[2018-12-21] MEDS ORDERED: HYDROcodone/APAP 5/325MG TABLET PO PRN (17:14)
[2018-12-21] MEDS ORDERED: PROMETHAZINE 25 MG TABLET PO PRN (17:14)
[2018-12-21] MEDS ORDERED: MAGNESIUM SULFATE 2 GM/50 ML BAG IV PRN (17:14)
[2018-12-21] MEDS ORDERED: POTASSIUM CHLORIDE 20 MEQ TABLET PO PRN ×2 (17:14)
[2018-12-21] MEDS ORDERED: METOPROLOL TARTRATE 5 MG/5 ML VIAL IV PRN (17:14)
[2018-12-21] MEDS ORDERED: LACTULOSE 20 GM/30 ML ORAL.SOL PO PRN (17:14)
[2018-12-21] MEDS ORDERED: 0.9 % SODIUM CHLORIDE 250 ML IV ONE (17:14)
[2018-12-21] MEDS ORDERED: SENNOSIDES 1 TABLET PO PRN (17:14)
[2018-12-21] MEDS ORDERED: PROCHLORPERAZINE 10 MG/2 ML VIAL IV PRN (17:14)
[2018-12-21] MEDS ORDERED: LISINOPRIL 10 MG TABLET PO ONE (17:14)
[2018-12-21] MEDS ORDERED: ONDANSETRON 4 MG/2 ML VIAL IV PRN (17:14)
[2018-12-21] MEDS ORDERED: POLYETHYLENE GLYCOL 3350 17 GM PACKET PO PRN (17:14)
[2018-12-21] MEDS ORDERED: IPRATROPIUM/ALBUTEROL 3 ML AMPUL.NEB NEB PRN (17:14)
[2018-12-21] MEDS ORDERED: ENALAPRILAT 1.25 MG/ML VIAL IV PRN (17:14)
[2018-12-21] MEDS ORDERED: POTASSIUM CHLORIDE 40 MEQ in DEXTROSE 5% IN WATER 500 ML IV PRN (17:14)
[2018-12-21] MEDS ORDERED: LABETALOL 5 MG/ML ML IV PRN (17:14)
[2018-12-21] MEDS: ACETAMINOPHEN 325 MG TABLET PO PRN (17:48)
[2018-12-21] MEDS: DOCUSATE SODIUM 100 MG CAPSULE PO SCH (21:51)
[2018-12-21] MEDS: 0.9 % SODIUM CHLORIDE 10 ML SYRINGE IV SCH (22:55)
[2018-12-21] MEDS: 0.9 % SODIUM CHLORIDE 1,000 ML IV SCH (23:19)
[2018-12-22 05:35] LABS: Basophils # (Auto) 0 K/mcL (0.0-0.3); Basophils % (Auto) 0.1 % (0.0-2.0); Eosinophils # (Auto) 0.1 K/mcL (0.0-0.7); Eosinophils % (Auto) 1.7 % (0.0-7.0); Granulocytes % (Auto) 76.7 % (38.0-78.0); Hematocrit 40.1 % (41.0-55.0); Hemoglobin 13.3 g/dL (13.5-16.5); Lymphocytes # (Auto) 1.1 K/mcL (1.5-4.8); Lymphocytes % (Auto) 15.1 % (15.5-49.0); Mean Cell Volume 97.2 fL (80.0-100.0); Mean Corpuscular HGB Conc 33.2 g/dL (31.0-36.0); Mean Platelet Volume 7.4 fL (7.4-10.4); Monocytes # (Auto) 0.5 K/mcL (0.1-0.9); Monocytes % (Auto) 6.4 % (1.0-12.0); Platelet Count 186 K/mcL (140-440); RBC 4.13 M/mcL (4.50-5.90); Red Cell Distribution Width 14.1 % (11.5-14.5); WBC 7.2 K/mcL (4.5-11.0)
[2018-12-22 05:46] LABS: INR 3.2 (0.9-1.1); Prothrombin Time 32.4 sec (11.9-14.5)
[2018-12-22 06:05] LABS: ALT/SGPT 19 U/l (0-40); AST/SGOT 22 U/l (0-37); Albumin 3.3 gm/dL (3.2-5.2); Albumin/Globulin Ratio 1.1 (1.0-2.3); Alkaline Phosphatase 86 U/L (39-117); Bilirubin,Direct 0.3 mg/dL (0.0-0.3); Bilirubin,Total 1.7 mg/dL (0.0-1.0); Blood Urea Nitrogen 17 mg/dl (8-23); Calcium 8.6 mg/dl (8.6-10.4); Carbon Dioxide 25 mmol/L (22-30); Chloride 103 mmol/L (96-108); Glomerular Filtration Rate 84; Glucose 97 mg/dL (70-105); Lactate Dehydrogenase 256 U/L (94-250); Phosphorous 2.4 mg/dL (2.7-4.5); Triglycerides 68 mg/dl (<150); Uric Acid 5.7 mg/dL (2.5-8.0)
--- NOTE | 2018-12-22 08:08 | Internal Med Progress Note ---
Medical - PN: Subj Patient information: Note initiated : 12/22/18 at 8:03 am Service Date, if different from initiated Date: [] Patient: Lenny Madden 88 y/o M admitted on 12/21/18 for fall. Chief Complaint: [] Interval history: Mr. Madden is a 88 year old M Presents to the ED after falling developing sudden right hip pain. Patient went to the wrong bank today, he is switching [employer]. He went to the door it was locked he was frustrated turning around and walked briskly back to his car and forgot about the step and thus tripped. Falling on his right side with immediate pain. Denies any syncope or hitting his head. He fell onto the concrete. In the ED he was evaluated found to have a right intertrochanteric fracture. He is on warfarin for atrial fibrillation with an INR 2.8. Emergency was contacted sound like surgery planned for tomorrow. Patient denies any chest pain or shortness of breath, hip pain relatively well controlled in the ED. 12/22 And a bit of a headache earlier but no complaints now. Slept all right. Pain controlled. INR still elevated despite vitamin K yesterday. FFP ordered fo llow-up [id number] INR. Review of Systems: denies headache/fever/chills/nausea/vomiting/chest or abdominal pain/cough/dyspnea/diarrhea. Otherwise see above. - Constitutional Vitals: Vital Signs Temp Pulse Resp BP Pulse Ox 99 F 83 18 128/87 93 12/22/18 07:34 12/22/18 05:00 12/22/18 07:34 12/22/18 07:34 12/22/18 07:34 Period Temp Pulse Resp BP Sys/Barcenas Pulse Ox Last 24 Hr 98.7 F-100.0 F 76-91 16-20 120-187/79-105 91-98 Intake and Output 12/21/18 12/22/18 12/22/18 21:59 05:59 13:59 Intake Total 250 Output Total 100 450 Balance 150 -450 Weight 72.665 kg Intake & Output: Intake & Output 12/21/18 12/22/18 12/22/18 21:59 05:59 13:59 Intake Total 250 Output Total 100 450 Balance 150 -450 Weight 72.665 kg Intake: IV 250 Sodium Chloride 0.9% 250 ml @ 250 150 mls/hr IV [facility] Rx#: [id number] Output: Void Amount 100 450 Other: Meal Dinner Percent of Meal Consumed 75% Feeding Ability Independent Urine Appearance Clear Clear Urine Color Dark Yellow Dark Yellow Exam: General: Alert, Awake, No acute Distress Eyes/N/T: EOMI, Head/Neck: neck supple, CV: regular today, No murmurs, Pulm: Clear b/l, no wheezing/rhonchi/rales Abd: soft, nontender, +BS x4 Ext: no clubbing/cyanosis/edema. Neuro: Alert, no focal deficits, Skin: warm/dry Medical - PN: Obj Da - Labs CBC & Chem 7: 12/22/18 04:10 12/22/18 04:10 Labs: Abnormal Lab Results 12/22/18 12/22/18 12/22/18 04:10 04:10 04:10 RBC 4.13 L Hgb 13.3 L Hct 40.1 L MPV Gran % Lymph % (Auto) 15.1 L Lymph # (Auto) 1.1 L PT 32.4 H INR 3.2 H Glucose Phosphorus 2.4 L Total Bilirubin 1.7 H Lactate Dehydrogenase 256 H Urine Protein Urine Ketones Urine RBC 12/21/18 12/21/18 12/21/18 13:27 13:25 13:25 RBC Hgb Hct MPV Gran % Lymph % (Auto) Lymph # (Auto) PT 29.3 H INR 2.8 H Glucose 109 H Phosphorus Total Bilirubin 1.2 H Lactate Dehydrogenase Urine Protein 30 A Urine Ketones 5/tr A Urine RBC 2 H 12/21/18 13:25 RBC 4.47 L Hgb Hct MPV 7.2 L Gran % 78.9 H Lymph % (Auto) 15.0 L Lymph # (Auto) 1.0 L PT INR Glucose Phosphorus Total Bilirubin Lactate Dehydrogenase Urine Protein Urine Ketones Urine RBC Meds: Medications Acetaminophen (Tylenol) 650 mg PO Q6HP PRN PRN Reason: PAIN/FEVER > 101 Last Admin: 12/21/18 17:48 Dose: 650 mg Documented by: Hydrocodone Bitart/Acetaminophen ([place] 5/325mg) 1 tab PO Q4HP PRN PRN Reason: PAIN LEVEL 3-6 Albuterol/Ipratropium (Duoneb) 3 ml NEB Q4HP PRN PRN Reason: Shortness Of Breath Docusate Sodium (Colace) 100 mg PO BID [facility] Last Admin: 12/21/18 21:51 Dose: Not Given Documented by: Enalaprilat (Vasotec) 0 mg IV Q2HP PRN PRN Reason: Hypertension Hydrochlorothiazide ([place]) 12.5 mg PO DAILY [facility] Potassium Chloride 40 meq/ (Dextrose) 520 mls @ 130 mls/hr IV UD PRN PRN Reason: Potassium < 3 Magnesium Sulfate (Magnesium Sulfate) 2 gm in 50 mls @ 50 mls/hr IV UD PRN PRN Reason: Magnesium </= 1.6 Sodium Chloride (Sodium Chloride 0.9%) 1,000 mls @ 75 mls/hr IV .[id number] [facility] Last Admin: 12/21/18 23:19 Dose: 75 mls/hr Documented by: Labetalol HCl (Trandate) 0 mg IV Q2HP PRN PRN Reason: Hypertension Lactulose (Cephulac) 10 gm PO DAILYP PRN PRN Reason: Constipation Lisinopril (Zestril) 10 mg PO DAILY [facility] Metoprolol Tartrate (Lopressor) 5 mg IV Q2HP PRN PRN Reason: Tachyarrhythmias HR>110 Morphine Sulfate (Morphine) 0 mg IV Q3HP PRN PRN Reason: Pain Ondansetron HCl (Zofran) 4 mg IV Q4HP PRN PRN Reason: Nausea And Vomiting Polyethylene Glycol (Miralax) 17 gm PO DAILYP PRN PRN Reason: Constipation Potassium Chloride (Kdur) 40 meq PO UD PRN PRN Reason: Potssium is 3-3.5 Potassium Chloride (Kdur) 40 meq PO UD PRN PRN Reason: Potassium < 3 Prochlorperazine (Compazine) 10 mg IV Q6HP PRN PRN Reason: Nausea And Vomiting Promethazine HCl (Phenergan) 0 mg PO Q6HP PRN PRN Reason: Nausea And Vomiting Senna (Senokot) 2 tab PO HSP PRN PRN Reason: Constipation Sodium Chloride (Saline Flush) 10 ml IV Q8 [facility] Last Admin: 12/21/18 22:55 Dose: 10 ml Documented by: Medical - PN: A/P - Time Spent With Patient Total time spent is greater than 50% in coordination of care (as documented) at patient's floor/unit and/or counseling patient: - Narrative A/P Narrative: A: *Right hip fracture, GLF from tripping: *PAF: on Coumadin, I do not see any beta-blockers *HTN: On lisinopril/hydrochlorothiazide per [facility] *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 P: -Dr. Cervantes for Ortho, to OR when INR appropriate -Pain management -Monitor on telemetry perioperatively -FFP and f/u INR, Vit K given yesterday -monitor for delirium -pt/ot -ppx: resume warfarin post-op DNR
[2018-12-22] MEDS ORDERED: 0.9 % SODIUM CHLORIDE 250 ML IV SCH (08:15)
[2018-12-22] MEDS: LISINOPRIL 10 MG TABLET PO SCH (09:25)
[2018-12-22] MEDS: DOCUSATE SODIUM 100 MG CAPSULE PO SCH ×2 (09:25→20:11)
[2018-12-22] MEDS: HYDROCHLOROTHIAZIDE 12.5 MG CAPSULE PO SCH (09:25)
[2018-12-22] MEDS: 0.9 % SODIUM CHLORIDE 10 ML SYRINGE IV SCH ×3 (09:25→20:10)
[2018-12-22 15:01] LABS: POC INR 1.6 (0.9-1.2); POC Pro Time 18.5 sec (11.9-14.5)
[2018-12-22] MEDS: 0.9 % SODIUM CHLORIDE 1,000 ML IV SCH ×2 (16:08→20:10)
[2018-12-22] MEDS: ACETAMINOPHEN 325 MG TABLET PO PRN (16:09)
[2018-12-22] MEDS ORDERED: DEXAMETHASONE 10 MG/ML VIAL IV ONE (17:50)
[2018-12-22] MEDS ORDERED: GLYCOPYRROLATE 0.2 MG/ML VIAL IV ONE (17:50)
[2018-12-22] MEDS ORDERED: HYDROmorphone 2 MG/ML VIAL IV ONE (17:50)
[2018-12-22] MEDS ORDERED: fentaNYL 100 MCG/2 ML VIAL IV ONE (17:50)
[2018-12-22] MEDS ORDERED: ONDANSETRON 4 MG/2 ML VIAL IV ONE (17:50)
[2018-12-22] MEDS ORDERED: MIDAZOLAM 2 MG/2 ML VIAL IV ONE (17:50)
[2018-12-22] MEDS ORDERED: TRANEXAMIC ACID 1,000 MG/10 ML VIAL IV ONE (17:50)
[2018-12-22] MEDS ORDERED: KETAMINE 100 MG/ML ML IV ONE (17:50)
[2018-12-22] MEDS ORDERED: LIDOCAINE HCL/PF 100 MG/5 ML SYRINGE IV ONE (17:50)
[2018-12-22] MEDS ORDERED: PROPOFOL 200 MG/20 ML VIAL IV ONE (17:50)
--- NOTE | 2018-12-22 18:23 | Brief Operative Note ---
Date of procedure: 12/22/18 Pre-op diagnosis: R closed intertrochanteric hip fracture Post-op diagnosis: same Procedure: Open treatment internal fixation of Right intertrochanteric hip fracture with gamma nail Grafts/Implants: Yes ([place] gamma nail, short) Anesthesia: GLMA Findings: non displaced IT fx Complications: none Surgeon: Tushar Cervantes Sales And Training Specialist: Mann Conway Estimated blood loss (cc): 100 Specimens Removed/Pathology: none sent Condition: stable Disposition: PACU
[2018-12-22] MEDS ORDERED: MAGNESIUM HYDROXIDE 30 ML ORAL.SUSP PO PRN (18:24)
[2018-12-22] MEDS ORDERED: BENZOCAINE/MENTHOL 1 LOZENGE PO PRN ×2 (18:24→18:48)
[2018-12-22] MEDS ORDERED: BISACODYL 10 MG SUPP.RECT PR PRN (18:24)
[2018-12-22] MEDS ORDERED: FLEETS ADULT ENEMA PR PRN (18:24)
[2018-12-22] MEDS ORDERED: NALOXONE HCL 0.4 MG/ML VIAL IV PRN (18:48)
[2018-12-22] MEDS ORDERED: FLUMAZENIL 0.1 MG/ML ML IV PRN (18:48)
[2018-12-22] MEDS ORDERED: LACTATED RINGERS 250 ML IV PRN (18:48)
[2018-12-22] MEDS ORDERED: fentaNYL 100 MCG/2 ML VIAL IV PRN (18:48)
[2018-12-22] MEDS ORDERED: ACETAMINOPHEN 1,000 MG/100 ML BOTTLE IV ONE (18:48)
[2018-12-22] MEDS ORDERED: IPRATROPIUM/ALBUTEROL 3 ML AMPUL.NEB NEB PRN (18:48)
[2018-12-22] MEDS ORDERED: METHOCARBAMOL 1,000 MG/10 ML VIAL IV PRN (18:48)
[2018-12-22] MEDS ORDERED: LACTATED RINGERS 1,000 ML IV SCH (19:00)
--- NOTE | 2018-12-22 19:16 | XRay Report ---
CLINICAL INFORMATION: right hip gamma nail for right intertrochanteric hip fracture COMPARISON: None. FINDINGS: Multiple digital images from the OR. The final images show intertrochanteric hip fracture reduced to anatomic alignment transfixed by gamma nail. Total fluoroscopy time 33 seconds IMPRESSION: ORIF intertrochanteric fracture in anatomic alignment. Interpreted and Authenticated by: Bryson De La Torre 12/22/18
[2018-12-22] MEDS: ceFAZolin 2 GM in DEXTROSE 5% IN WATER 50 ML IV SCH (20:09)
[2018-12-23] MEDS ORDERED: ceFAZolin 1 GM VIAL ONE (03:07)
[2018-12-23] MEDS: ceFAZolin 2 GM in DEXTROSE 5% IN WATER 50 ML IV SCH (03:20)
[2018-12-23] MEDS: 0.9 % SODIUM CHLORIDE 1,000 ML IV SCH (04:08)
[2018-12-23] MEDS: 0.9 % SODIUM CHLORIDE 10 ML SYRINGE IV SCH ×3 (05:45→20:42)
[2018-12-23 07:10] LABS: Hematocrit 36.6 % (41.0-55.0); Hemoglobin 11.9 g/dL (13.5-16.5)
[2018-12-23 07:44] LABS: INR 1.7 (0.9-1.1); Prothrombin Time 20.3 sec (11.9-14.5)
[2018-12-23] MEDS: ACETAMINOPHEN 325 MG TABLET PO PRN (08:02)
--- NOTE | 2018-12-23 08:30 | Internal Med Progress Note ---
Medical - PN: Subj Patient information: Note initiated : 12/23/18 at 8:26 am Service Date, if different from initiated Date: [] Patient: Lenny Madden 88 y/o M admitted on 12/21/18 for fall. Chief Complaint: [] Interval history: Mr. Madden is a 88 year old M Presents to the ED after falling developing sudden right hip pain. Patient went to the wrong [place] today, he is switching [place]. He went to the door it was locked he was frustrated turning around and walked briskly back to his car and forgot about the step and thus tripped. Falling on his right side with immediate pain. Denies any syncope or hitting his head. He fell onto the concrete. In the ED he was evaluated found to have a right intertrochanteric fracture. He is on warfarin for atrial fibrillation with an INR 2.8. Emergency was contacted sound like surgery planned for tomorrow. Patient denies any chest pain or shortness of breath, hip pain relatively well controlled in the ED. 12/22 And a bit of a headache earlier but no complaints now. Slept all right. Pain controlled. INR still elevated despite vitamin K yesterday. FFP ordered fo llow-up [id number] INR. 12/23 Feeling well. No new complaints. No overnight events. Feels like he needs to have a bowel movement. Working with physical therapy. Review of Systems: denies headache/fever/chills/nausea/vomiting/chest or abdominal pain/cough/dyspnea/diarrhea. Otherwise see above. - Constitutional Vitals: Vital Signs Temp Pulse Resp BP Pulse Ox 98.4 F 69 18 110/55 93 12/23/18 08:24 12/23/18 05:01 12/23/18 08:24 12/23/18 08:24 12/23/18 08:24 Period Temp Pulse Resp BP Sys/Barcenas Pulse Ox Last 24 Hr 97.8 F-99.5 F 63-91 6-20 110-186/51-94 91-100 Intake and Output 12/22/18 12/23/18 12/23/18 21:59 05:59 13:59 Intake Total 1602 240 580 Output Total 800 350 150 Balance 802 -110 430 Weight 76.929 kg Intake & Output: Intake & Output 12/22/18 12/23/18 12/23/18 21:59 05:59 13:59 Intake Total 1602 240 580 Output Total 800 350 150 Balance 802 -110 430 Weight 76.929 kg Intake: IV 402 Sodium Chloride 0.9% 1,000 ml @ 302 75 mls/hr IV .[id number] [facility] Rx#: [id number] Oral 240 580 IV - Manual Only 1200 Output: Void Amount 300 350 150 Estimated Blood Loss 500 Other: Meal Breakfast Percent of Meal Consumed 100% Feeding Ability Independent Urine Appearance Clear Clear Urine Color Dark Yellow Dark Yellow Urine Odor Strong Exam: General: Alert, Awake, No acute Distress Eyes/N/T: EOMI, Head/Neck: neck supple, CV: irreg irreg, No murmurs, Pulm: Clear b/l, no wheezing/rhonchi/rales Abd: soft, nontender, +BS x4 Ext: no clubbing/cyanosis/edema. Neuro: Alert, no focal deficits, Skin: warm/dry Medical - PN: Obj Da - Labs CBC & Chem 7: 12/23/18 04:10 12/22/18 04:10 Labs: Abnormal Lab Results 12/23/18 12/23/18 12/22/18 04:10 04:10 14:58 RBC Hgb 11.9 L Hct 36.6 L MPV Gran % Lymph % (Auto) Lymph # (Auto) POC PT 18.5 H PT 20.3 H POC INR 1.6 H INR 1.7 H Glucose Phosphorus Total Bilirubin Lactate Dehydrogenase Urine Protein Urine Ketones Urine RBC 12/22/18 12/22/18 12/22/18 04:10 04:10 04:10 RBC 4.13 L Hgb 13.3 L Hct 40.1 L MPV Gran % Lymph % (Auto) 15.1 L Lymph # (Auto) 1.1 L POC PT PT 32.4 H POC INR INR 3.2 H Glucose Phosphorus 2.4 L Total Bilirubin 1.7 H Lactate Dehydrogenase 256 H Urine Protein Urine Ketones Urine RBC 12/21/18 12/21/18 12/21/18 13:27 13:25 13:25 RBC Hgb Hct MPV Gran % Lymph % (Auto) Lymph # (Auto) POC PT PT 29.3 H POC INR INR 2.8 H Glucose 109 H Phosphorus Total Bilirubin 1.2 H Lactate Dehydrogenase Urine Protein 30 A Urine Ketones 5/tr A Urine RBC 2 H 12/21/18 13:25 RBC 4.47 L Hgb Hct MPV 7.2 L Gran % 78.9 H Lymph % (Auto) 15.0 L Lymph # (Auto) 1.0 L POC PT PT POC INR INR Glucose Phosphorus Total Bilirubin Lactate Dehydrogenase Urine Protein Urine Ketones Urine RBC Meds: Medications Acetaminophen (Tylenol) 650 mg PO Q6HP PRN PRN Reason: PAIN/FEVER > 101 Last Admin: 12/23/18 08:02 Dose: 650 mg Documented by: Hydrocodone Bitart/Acetaminophen ([place] 5/325mg) 1 tab PO Q4HP PRN PRN Reason: PAIN LEVEL 3-6 Albuterol/Ipratropium (Duoneb) 3 ml NEB Q4HP PRN PRN Reason: Shortness Of Breath Bisacodyl (Dulcolax) 10 mg IA Q2-3DAYS PRN PRN Reason: Constipation Docusate Sodium (Colace) 100 mg PO BID [facility] Last Admin: 12/22/18 20:11 Dose: Not Given Documented by: Enalaprilat (Vasotec) 0 mg IV Q2HP PRN PRN Reason: Hypertension Last Admin: 12/22/18 16:10 Dose: 0.625 mg Documented by: Hydrochlorothiazide (Oretic) 12.5 mg PO DAILY [facility] Last Admin: 12/22/18 09:25 Dose: 12.5 mg Documented by: Potassium Chloride 40 meq/ (Dextrose) 520 mls @ 130 mls/hr IV UD PRN PRN Reason: Potassium < 3 Magnesium Sulfate (Magnesium Sulfate) 2 gm in 50 mls @ 50 mls/hr IV UD PRN PRN Reason: Magnesium </= 1.6 Sodium Chloride (Sodium Chloride 0.9%) 1,000 mls @ 75 mls/hr IV .[id number] [facility] Last Admin: 12/23/18 04:08 Dose: Not Given Documented by: Labetalol HCl (Trandate) 0 mg IV Q2HP PRN PRN Reason: Hypertension Lactulose (Cephulac) 10 gm PO DAILYP PRN PRN Reason: Constipation Lisinopril (Zestril) 10 mg PO DAILY [facility] Last Admin: 12/22/18 09:25 Dose: 10 mg Documented by: Magnesium Hydroxide (Milk Of Magnesia) 30 ml PO BIDP PRN PRN Reason: Constipation Metoprolol Tartrate (Lopressor) 5 mg IV Q2HP PRN PRN Reason: Tachyarrhythmias HR>110 Morphine Sulfate (Morphine) 0 mg IV Q3HP PRN PRN Reason: Pain Ondansetron HCl (Zofran) 4 mg IV Q4HP PRN PRN Reason: Nausea And Vomiting Polyethylene Glycol (Miralax) 17 gm PO DAILYP PRN PRN Reason: Constipation Potassium Chloride (Kdur) 40 meq PO UD PRN PRN Reason: Potssium is 3-3.5 Potassium Chloride (Kdur) 40 meq PO UD PRN PRN Reason: Potassium < 3 Prochlorperazine (Compazine) 10 mg IV Q6HP PRN PRN Reason: Nausea And Vomiting Promethazine HCl (Phenergan) 0 mg PO Q6HP PRN PRN Reason: Nausea And Vomiting Senna (Senokot) 2 tab PO HSP PRN PRN Reason: Constipation Sodium Biphosphate/Sodium Phosphate (Fleets Adult) 1 dose IA Q3-4DAYS PRN PRN Reason: Constipation Sodium Chloride (Saline Flush) 10 ml IV Q8 [facility] Last Admin: 12/23/18 05:45 Dose: Not Given Documented by: Throat Lozenges (Cepacol) 1 lozenge PO PRN PRN PRN Reason: Sore Throat Warfarin Sodium (Coumadin Per Pharmacy) 1 order PO DAILY@1400 [facility] Last Admin: 12/22/18 20:11 Dose: Not Given Documented by: Medical - PN: A/P - Time Spent With Patient Total time spent is greater than 50% in coordination of care (as documented) at patient's floor/unit and/or counseling patient: - Narrative A/P Narrative: A: *Right hip fracture, GLF from tripping: s/p ORIF (12/22) *PAF: on Coumadin, I do not see any beta-blockers *HTN: On lisinopril/hydrochlorothiazide per [facility] *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 P: -Dr. Cervantes for Ortho, -Pain management -Monitor on telemetry perioperatively, transfer to med/surg -monitor for delirium -IS -pt/ot -ppx: resume warfarin (dosing per pharm) DNR
[2018-12-23] MEDS ORDERED: LISINOPRIL/HCTZ 10/12.5MG TABLET PO SCH (09:00)
[2018-12-23] MEDS: DOCUSATE SODIUM 100 MG CAPSULE PO SCH ×2 (09:16→20:42)
[2018-12-23] MEDS: HYDROCHLOROTHIAZIDE 12.5 MG CAPSULE PO SCH (09:16)
[2018-12-23] MEDS: LISINOPRIL 10 MG TABLET PO SCH (09:17)
--- NOTE | 2018-12-23 10:01 | Orthopedic Progress Note ---
Orthopedics - Auxillary Note - Subjective Patient Information: Note initiated : 12/23/18 at 9:58 am Service Date, if different from initiated Date: [] Patient: Lenny Madden 88 y/o M admitted on 12/21/18 for fall. Chief Complaint: No c/o. Pt doing well. Bandages c/d/i. NVI-distal Vital Signs Temp Pulse Pulse Resp BP BP BP 12/23/18 08:24 98.4 F 18 110/55 12/23/18 05:01 69 18 125/83 12/23/18 04:06 16 128/68 12/23/18 02:00 68 16 141/80 12/23/18 01:02 68 18 136/79 12/23/18 00:07 98.2 F 18 146/88 12/22/18 23:54 78 16 12/22/18 22:03 76 20 149/90 12/22/18 21:36 97.8 F 75 20 153/88 12/22/18 21:00 75 18 149/84 12/22/18 20:32 75 18 151/87 12/22/18 20:18 73 18 149/85 12/22/18 20:12 97.9 F 74 20 161/80 12/22/18 19:36 98.4 F 63 20 153/90 12/22/18 19:27 98.0 F 81 14 143/72 12/22/18 19:12 97.9 F 86 17 142/77 12/22/18 18:57 97.9 F 91 H 8 L 183/91 12/22/18 18:52 90 11 L 157/92 12/22/18 18:47 79 6 L 114/63 12/22/18 18:42 98.3 F 76 10 L 111/51 12/22/18 16:03 98.7 F 20 186/94 12/22/18 11:54 99.5 F H 70 16 141/85 Pulse Ox 12/23/18 08:24 93 12/23/18 05:01 98 12/23/18 04:06 98 12/23/18 02:00 98 12/23/18 01:02 99 12/23/18 00:07 97 12/22/18 23:54 97 12/22/18 22:03 96 12/22/18 21:36 96 12/22/18 21:00 96 12/22/18 20:32 96 12/22/18 20:18 95 12/22/18 20:12 93 12/22/18 19:36 93 12/22/18 19:27 96 12/22/18 19:12 93 12/22/18 18:57 100 12/22/18 18:52 100 12/22/18 18:47 100 12/22/18 18:42 96 12/22/18 16:03 92 12/22/18 11:54 91 Intake and Output 12/22/18 12/23/18 12/23/18 21:59 05:59 13:59 Intake Total 3184 755 6277 Output Total 800 350 150 Balance 802 -110 1430 Intake: IV 402 1000 Sodium Chloride 0.9% 1,000 ml @ 302 1000 75 mls/hr IV .[id number] [facility] Rx#: [id number] Oral 240 580 IV - Manual Only 1200 Output: Void Amount 300 350 150 Estimated Blood Loss 500 Other: Meal Breakfast Percent of Meal Consumed 100% Feeding Ability Independent Urine Appearance Clear Clear Urine Color Dark Yellow Dark Yellow Urine Odor Strong Weight 169 lb 9.6 oz Laboratory Results - last 24 hr 12/22/18 12/23/18 12/23/18 14:58 04:10 04:10 Hgb 11.9 L Hct 36.6 L POC PT 18.5 H PT 20.3 H POC INR 1.6 H INR 1.7 H 1 day s/p R hip IM nail for non-displaced intertroch fx-stable Pt may weight bear as tolerated Pt may discharge when cleared by hospitalist. -f/u at [facility] in 2 weeks. -daily dry dressing changes OR aquacel dressing.
--- NOTE | 2018-12-23 10:17 | Operative Note ---
DATE OF OPERATION: 12/22/2018 PREOPERATIVE DIAGNOSIS: Right closed intertrochanteric hip fracture. POSTOPERATIVE DIAGNOSIS: Right closed intertrochanteric hip fracture. PROCEDURE PERFORMED: Open treatment and internal fixation of the right intertrochanteric hip fracture with a [place] gamma nail, short. SURGEON: Tushar Cervantes MD ETL BI DEVELOPER: Marquis Conway PA-C. This provider's expertise and technical skill were required throughout the case. The PA assisted with preoperative coordination, intraoperative retraction, wound closure, dressing and splint application, as well as postoperative documentation and care coordination. ANESTHESIA: General. DRAINS: None. SPECIMENS: None. COMPLICATIONS: None. BLOOD LOSS: 100 mL POSTOPERATIVE CONDITION: Stable. INDICATIONS FOR SURGERY: This is an 88-year-old active male who sustained a fall the day prior. He had pain and inability to bear weight. He was taken to the emergency department and a nondisplaced intertrochanteric hip fracture was seen. FINDINGS AT SURGERY: A nondisplaced intertrochanteric hip fracture. Post-hardware placement showed good fracture alignment and hardware position. PROCEDURE IN DETAIL: The patient had been seen preoperatively and informed consent had been obtained after discussion of risks and benefits of surgery. Risks including, but not limited to, bleeding; infection; injury to nerves, blood vessels other surrounding structures; anesthetic risks; nonunion or malunion of fracture; failure of hardware fixation; possibility of needing further surgery. He understood and wished to proceed. Correct operative site was marked in preoperative holding and patient was taken to the operating room and general anesthesia induced. He was carefully positioned on the fracture table and the right lower extremity was placed in some mild traction with some internal rotation. The right hip and leg were then carefully prepped and draped in normal sterile fashion. An [place] shower curtain was placed and then a timeout was performed verifying patient name, operative site, and plan. Incision was made in line with the femur proximal to greater trochanter with a scalpel through skin and subcutaneous tissue. Hemostasis was obtained with Bovie cautery. We continued the Bovie through the iliotibial band. Blunt finger dissection was taken down on the trochanter and then a guide pin was placed under fluoroscopic guidance starting the tip of the trochanter and down to the lesser. We checked a lateral view, and this was centered so we went ahead and used the opening reamer with a tissue protector. We then removed this and placed a short 125 gamma nail. This was positioned so the lag screw would be central in the head and then a sleeve was passed through the jig and stab incision made in the skin. This was taken then down to the base of the greater trochanter. We then used the guide pin under fluoroscopic guidance and placed this right up to the articular surface on AP and lateral view placing the central in the head. Depth gauge was used and then a step reamer was used to prepare and then a lag screw was opened. This was advanced until we were within a cm of the articular surface on both views. We then placed the locking screw in the proximal end of the nail. This was tightened tight and verified we could not rotate the screw and then we backed this off a quarter turn to allow sliding compression. We then removed the sleeves and placed a distal screw sleeve through the jig. A stab incision was made and farther distal and then a sleeve was taken down to bone. We placed this in the dynamic slot. We then drilled under fluoroscopy and appropriate length screw was opened that would verify bicortical fixation. This was advanced until it was tight against bone. Final fluoro images were taken, AP and lateral views, which showed hardware in good position, fracture anatomically aligned. Those were saved. We irrigated with saline. A #1 Vicryl was used to close the IT band, another irrigation was done, and 2-0 Monocryl used for subcutaneous for all of the incisions and then juan david for skin for all the incisions. Xeroform sterile dressings were applied. The patient was then transferred to a hospital bed and then awakened, extubated, and transferred to recovery in satisfactory condition. RAMAN:cora Job ID: [id number] Doc ID: [id number] Tushar Cervantes MD
[2018-12-23] MEDS ORDERED: MAGNESIUM SULFATE 2 GM/50 ML BAG IV PRN (11:31)
[2018-12-23] MEDS ORDERED: PROMETHAZINE 25 MG TABLET PO PRN (11:31)
[2018-12-23] MEDS ORDERED: POTASSIUM CHLORIDE 20 MEQ TABLET PO PRN ×2 (11:31)
[2018-12-23] MEDS ORDERED: HYDROcodone/APAP 5/325MG TABLET PO PRN (11:31)
[2018-12-23] MEDS ORDERED: BISACODYL 10 MG SUPP.RECT PR PRN (11:31)
[2018-12-23] MEDS ORDERED: METOPROLOL TARTRATE 5 MG/5 ML VIAL IV PRN (11:31)
[2018-12-23] MEDS ORDERED: FLEETS ADULT ENEMA PR PRN (11:31)
[2018-12-23] MEDS ORDERED: LACTULOSE 20 GM/30 ML ORAL.SOL PO PRN (11:31)
[2018-12-23] MEDS ORDERED: ONDANSETRON 4 MG/2 ML VIAL IV PRN (11:31)
[2018-12-23] MEDS ORDERED: ENALAPRILAT 1.25 MG/ML VIAL IV PRN (11:31)
[2018-12-23] MEDS ORDERED: POTASSIUM CHLORIDE 40 MEQ in DEXTROSE 5% IN WATER 500 ML IV PRN (11:31)
[2018-12-23] MEDS ORDERED: PROCHLORPERAZINE 10 MG/2 ML VIAL IV PRN (11:31)
[2018-12-23] MEDS ORDERED: ACETAMINOPHEN 325 MG TABLET PO PRN (11:31)
[2018-12-23] MEDS ORDERED: POLYETHYLENE GLYCOL 3350 17 GM PACKET PO PRN (11:31)
[2018-12-23] MEDS ORDERED: IPRATROPIUM/ALBUTEROL 3 ML AMPUL.NEB NEB PRN (11:31)
[2018-12-23] MEDS ORDERED: LABETALOL 5 MG/ML ML IV PRN (11:31)
[2018-12-23] MEDS ORDERED: BENZOCAINE/MENTHOL 1 LOZENGE PO PRN (11:31)
[2018-12-23] MEDS ORDERED: MAGNESIUM HYDROXIDE 30 ML ORAL.SUSP PO PRN (11:31)
[2018-12-23] MEDS ORDERED: WARFARIN 5 MG TABLET PO ONE ×2 (14:00)
--- NOTE | 2018-12-23 20:21 | Discharge Summary ---
Medical - DS: Prov Patient information: Note initiated : 12/23/18 at 8:19 pm Service Date, if different from initiated Date: [] Patient: Lenny Madden 88 y/o M admitted on 12/21/18 for fall. Chief Complaint: [] Date of admission: 12/21/18 17:00 Discharge date: 12/24/18 Primary care physician: Víctor Pelayo M.D., F.A.A.F.P. Consults: 12/21/18 Consult to Physician [CONS] Stat Comment: Consulting Provider: Tushar Cervantes Reason For Exam: Physician to Consult Consult to Physician [CONS] Stat Comment: Consulting Provider: Moises Cross Reason For Exam: Physician to Consult Medical - DS: Meds - Discharge Medications Prescriptions: HYDROcodone/APAP 5/325MG [[place] 5-325Mg] 1 tab PO Q6HP PRN #50 tab PRN Reason: Pain Prescription Printed Acetaminophen [Tylenol] 650 mg PO Q6HP PRN #30 tab PRN Reason: Pain/Fever > 101 Transmission Status: Received by [facility] # 103 Active and Home Medications: Home Medications Fish Oil 1,000 mg PO DAILY 09/03/16 [History Confirmed 12/21/18 Last Taken 12/21/18 08:00] Vit A,C & E/Lutein/Minerals [Ocuvite] 1 tab PO DAILY 09/03/16 [History Confirmed 12/21/18 Last Taken 12/21/18 08:00] Vitamin D3 1 cap PO DAILY 09/03/16 [History Confirmed 12/21/18 Last Taken 12/21/18 08:00] lisinopril 10 mg-hydrochlorothiazide 12.5 mg tablet 1 tab PO QDAY #90 tab 02/26/18 [Rx Confirmed 12/21/18 Last Taken 12/21/18 08:00] potassium chloride 10 mEq tablet,extended release 10 meq PO QDAY #90 tab 09/11/18 [Rx Confirmed 12/21/18 Last Taken 12/21/18 08:00] Warfarin [Coumadin] 5 mg PO DAILY 12/21/18 [History Confirmed 12/21/18 Last Taken Unknown] Medical - DS: Hosp Hospital Course: Mr. Madden is a 88 year old M Presents to the ED after falling developing sudden right hip pain. Patient went to the wrong bank today, he is switching [place]. He went to the door it was locked he was frustrated turning around and walked briskly back to his car and forgot about the step and thus tripped. Falling on his right side with immediate pain. Denies any syncope or hitting his head. He fell onto the concrete. In the ED he was evaluated found to have a right intertrochanteric fracture. He is on warfarin for atrial fibrillation with an INR 2.8. Emergency was contacted sound like surgery planned for tomorrow. Patient denies any chest pain or shortness of breath, hip pain relatively well controlled in the ED. 12/22 And a bit of a headache earlier but no complaints now. Slept all right. Pain controlled. INR still elevated despite vitamin K yesterday. [facility]FP ordered follow-up [id number] INR. 12/23 Feeling well. No new complaints. No overnight events. Feels like he needs to have a bowel movement. Working with physical therapy. 12/24 Continues to feel well. No overnight events or complaints. Open to go home today. Did both physical therapy and case management setting up home health care. Stable for discharge. 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 per history - Time Spent with Patient Total time spent providing and/or coordinating discharge services: Greater than 30 minutes Medical - DS: Exam - Constitutional Vitals: Vital Signs Temp Pulse Pulse Resp BP BP BP 12/23/18 16:35 97.6 F 68 16 104/66 12/23/18 13:32 12/23/18 12:14 97.2 F 68 16 99/62 12/23/18 08:24 98.4 F 18 110/55 12/23/18 05:01 69 18 125/83 12/23/18 04:06 16 128/68 12/23/18 02:00 68 16 141/80 12/23/18 01:02 68 18 136/79 12/23/18 00:07 98.2 F 18 146/88 12/22/18 23:54 78 16 12/22/18 22:03 76 20 149/90 12/22/18 21:36 97.8 F 75 20 153/88 12/22/18 21:00 75 18 149/84 12/22/18 20:32 75 18 151/87 Pulse Ox 12/23/18 16:35 99 12/23/18 13:32 94 12/23/18 12:14 94 12/23/18 08:24 93 12/23/18 05:01 98 12/23/18 04:06 98 12/23/18 02:00 98 12/23/18 01:02 99 12/23/18 00:07 97 12/22/18 23:54 97 12/22/18 22:03 96 12/22/18 21:36 96 12/22/18 21:00 96 12/22/18 20:32 96 Intake and Output 12/23/18 12/23/18 12/23/18 05:59 13:59 21:59 Intake Total 240 1580 960 Output Total 350 250 Balance -110 1330 960 Intake: IV 1000 Sodium Chloride 0.9% 1,000 ml @ 1000 75 mls/hr IV .[id number] [facility] Rx#: [id number] Oral 240 580 960 Output: Void Amount 350 250 Other: Meal Breakfast Dinner Percent of Meal Consumed 100% 50% Feeding Ability Independent Independent Urine Appearance Clear Urine Color Dark Yellow Bright Yellow Urine Odor Strong Medical - DS: Data Labs on day of discharge: Labs from last 24 hours 12/23/18 12/23/18 04:10 04:10 Hgb 11.9 L Hct 36.6 L PT 20.3 H INR 1.7 H Medical - DS: A/P - Patient/Caregiver Discharge Instructions Activity: as per physical therapy Diet: Regular Diet Prescriptions: HYDROcodone/APAP 5/325MG [[place] 5-325Mg] 1 tab PO Q6HP PRN #50 tab PRN Reason: Pain Prescription Printed Acetaminophen [Tylenol] 650 mg PO Q6HP PRN #30 tab PRN Reason: Pain/Fever > 101 Transmission Status: Received by [facility] # [facility] Other Amb Orders: Prothrombin Time INR Time Frame: 2 Days, Location: None Selected - Follow up Plan Follow up with: Víctor Pelayo MD, FAAFP [Primary Care Provider] - Tushar Cervantes MD [Physician] - Disposition: Home Health Service Prognosis: Fair Rehab Potential: Fair Overall status at discharge: patient is progressing back to baseline
[2018-12-23] MEDS ORDERED: SENNOSIDES 1 TABLET PO PRN (21:00)
[2018-12-24] MEDS: 0.9 % SODIUM CHLORIDE 10 ML SYRINGE IV SCH (04:19)
[2018-12-24 05:39] LABS: Hematocrit 34.8 % (41.0-55.0); Hemoglobin 11.4 g/dL (13.5-16.5)
[2018-12-24 05:50] LABS: Prothrombin Time 22.6 sec (11.9-14.5)
--- NOTE | 2018-12-24 07:21 | Orthopedic Progress Note ---
Orthopedics - Auxillary Note - Subjective Patient Information: Note initiated : 12/24/18 at 7:19 am Service Date, if different from initiated Date: [] Patient: Lenny Madden 88 y/o M admitted on 12/21/18 for fall. Chief Complaint: no c/o. mild drainage with dressing change. NVI-distal Vital Signs Temp Pulse Resp BP BP BP Pulse Ox 12/24/18 04:20 97.5 F 79 17 127/75 94 12/23/18 22:41 98.1 F 72 20 141/84 97 12/23/18 19:14 97.7 F 70 20 109/68 98 12/23/18 16:35 97.6 F 68 16 104/66 99 12/23/18 13:32 94 12/23/18 12:14 97.2 F 68 16 99/62 94 12/23/18 08:24 98.4 F 18 110/55 93 Intake and Output 12/23/18 12/24/18 12/24/18 21:59 05:59 13:59 Intake Total 1200 480 Output Total 176 1100 350 Balance 1024 -620 -350 Intake: Oral 1200 480 Output: Void Amount 175 1100 350 # of times incontinent of urine 1 Other: Meal Dinner Percent of Meal Consumed 50% Feeding Ability Independent Urine Appearance Clear Clear Urine Color Bright Yellow Pale Urine Odor Normal Normal Stool Size Moderate Stool Color Brown Stool Consistency Formed # Voids 1 # Bowel Movements 1 Weight 164 lb Laboratory Results - last 24 hr 12/23/18 12/24/18 12/24/18 04:10 04:30 04:30 Hgb 11.4 L Hct 34.8 L PT 20.3 H 22.6 H INR 1.7 H 2.0 H 2 days s/p R hip IM nailing-stable discharge per hospitalist. see note form 12/23/18.
[2018-12-24] MEDS: DOCUSATE SODIUM 100 MG CAPSULE PO SCH (08:37)
[2018-12-24] MEDS ORDERED: LISINOPRIL 10 MG TABLET PO SCH (09:00)
[2018-12-24] MEDS ORDERED: HYDROCHLOROTHIAZIDE 12.5 MG CAPSULE PO SCH (09:00)
[2018-12-24] MEDS ORDERED: WARFARIN 5 MG TABLET PO ONE (14:00)
== END 2018-12-24 11:40 | disposition home health service (06) | DRG 481 ==
LOC: ED 12:33 → ICU 17:00 → MEDSUR 12-23 16:46
PROVIDERS: ADMIT Internal Medicine; ATTEND Internal Medicine